=== PATIENT | female | born 1985 | race Caucasian/White ===

== ENCOUNTER 2017-01-24 23:49 | Inpatient (IN) | payer BC ==
[2017-01-25] MEDS ORDERED: Carboprost Tromethamine 250 MCG/1 ML Amp IM PRN (00:10)
[2017-01-25] MEDS ORDERED: Ondansetron 4 MG/2 ML SDV IV PRN ×2 (00:10→13:34)
[2017-01-25] MEDS ORDERED: Lactated Ringers 500 ML IV ONE (00:10)
[2017-01-25] MEDS ORDERED: Lidocaine 1% 30 ML SDV INJECT PRN (00:10)
[2017-01-25] MEDS ORDERED: Nalbuphine 10 MG/1 ML Vial IM PRN (00:10)
[2017-01-25] MEDS ORDERED: Acetaminophen 325 MG Tab PO PRN ×2 (00:10→00:17)
[2017-01-25] MEDS ORDERED: Methylergonovine 0.2 MG/1 ML Amp IM PRN (00:10)
[2017-01-25] MEDS ORDERED: Penicillin G Potassium 5 MILLUNITS in Sodium Chloride 0.9% 100 ML IV ONE (00:10)
[2017-01-25] MEDS ORDERED: fentaNYL 100 MCG/2 ML SDV IVPUSH PRN (00:10)
[2017-01-25] MEDS ORDERED: Misoprostol 400 MCG (4 X 100 MCG TAB) RECTAL PRN (00:10)
[2017-01-25] MEDS ORDERED: Sodium Chloride 0.9% 10 ML Syringe FLUSH PRN ×2 (00:10→00:17)
[2017-01-25] MEDS ORDERED: Misoprostol 25 MCG (1/4 of 100 MCG) Tab VAG PRN (00:17)
--- NOTE | 2017-01-25 00:26 | PCM.LDHP ---
L&D History of Present Illness - General Date of Service: 01/25/17 Admit Problem/Dx: Patient Status Order with Admit Dx/Problem 01/25/17 00:10 Patient Status [ADT] Routine Admission Diagnosis/Problem Admission Diagnosis/Problem Source of Information: Patient History Limitations: Reports: No Limitations - History of Present Illness Introduction:: 31-year-old presents for IOL at 41w1d for postdates . She has no complaints. She has good care. Baby has been active. No regular contractions. No vaginal bleeding or leaking of fluid. No new headaches or vision changes. Past Medical History - Past Surgical History HEENT Surgical History: Reports: Other (See Below) (Dental surgery) Social & Family History - Family History Cardiac: Reports: Hypertension (Mother), Other (See Below) (Heart attack-- Paternal grandfather) Other Family History: Breast cancer--Maternal grandmother Neurological: Reports: Dementia (Paternal grandmother) Endocrine/Metabolic: Reports: Diabetes, type II (Maternal grandfather; Paternal grandfather) H&P Review of Systems - Review of Systems: Review Of Systems: See Below General: Reports: No Symptoms HEENT: Reports: No Symptoms Pulmonary: Reports: No Symptoms Cardiovascular: Reports: No Symptoms Gastrointestinal: Reports: No Symptoms Genitourinary: Reports: Incontinence Musculoskeletal: Reports: No Symptoms L&D Exam - Exam Exam: See Below - OB Specific Contraction Intensity: Irritability Movement: Active Heart Tones: Present Heart Tones per Min: 135 Heart Rate (FHR) Variability: Moderate (6-25 bmp) Presentation: Vertex - Coto Score Coto Score Cervix Position: Midposition Coto Score Consistency: Soft Coto Score Effacement: 51-70% Coto Score Dilation: 1-2 cm Coto Score Infant's Station: -2 Coto Score Total: 7 - Exam General: Alert, Oriented HEENT: Conjunctiva Clear, Mucosa Moist & [place] Lungs: Clear to Auscultation, Normal Respiratory Effort Cardiovascular: Regular Rate, Regular Rhythm. No: Systolic Murmur, Diastolic Murmur Genitourinary: Normal external exam Extremities: Pedal Edema (1+ bilaterally) Skin: Warm, Dry, Intact Psychiatric: Alert, Normal Affect, Normal Mood - Problem List (1) care in third trimester SNOMED Code(s): 780975590, 39000482, 34683782, 667510801, 950037655 ICD Code: Z34.93 - ENCNTR FOR SUPRVSN OF NORMAL PREG, UNSP, THIRD TRIMESTER Status: Acute Current Visit: Yes (2) Post-dates SNOMED Code(s): 54874390 ICD Code: O48.0 - POST-TERM Status: Acute Current Visit: Yes (3) Anemia affecting in third trimester SNOMED Code(s): 93599193, 40686325 ICD Code: O99.013 - ANEMIA COMPLICATING , THIRD TRIMESTER Status: Acute Current Visit: Yes (4) GBS (group B Streptococcus carrier), +RV culture, currently SNOMED Code(s): 52028833, 718862631 ICD Code: O99.820 - STREPTOCOCCUS B CARRIER STATE COMPLICATING Status: Acute Current Visit: Yes Problem List Initiated/Reviewed/Updated: Yes Orders Last 24hrs: Active Orders 24 hr Category Date Time Status Patient Status [ADT] Routine ADT 01/25/17 00:10 Ordered Communication Order [RC] ASDIRECTED Care 01/25/17 00:10 Ordered Communication Order [RC] ASDIRECTED Care 01/25/17 00:17 Ordered Communication Order [RC] ASDIRECTED Care 01/25/17 00:17 Ordered Communication Order [RC] ASDIRECTED Care 01/25/17 00:17 Ordered Communication Order [RC] ASDIRECTED Care 01/25/17 00:17 Ordered Communication Order [RC] ASDIRECTED Care 01/25/17 00:17 Ordered Heart Tones [RC] PER UNIT ROUTINE Care 01/25/17 00:10 Ordered Monitoring [RC] PER UNIT ROUTINE Care 01/25/17 00:17 Ordered Notify Provider Vital Signs OB [RC] ASDIRECTED Care 01/25/17 00:10 Ordered Notify Provider [RC] PRN Care 01/25/17 00:10 Ordered Notify Provider [RC] PRN Care 01/25/17 00:17 Ordered Notify Provider [RC] PRN Care 01/25/17 00:17 Ordered Notify Provider [RC] STAT Care 01/25/17 00:17 Ordered Peripheral IV Care [RC] . DIRECTED Care 01/25/17 00:18 Ordered Pump Management, Intrathecal [RC] ASDIRECTED Care 01/25/17 00:10 Ordered Up ad Sandy [RC] ASDIRECTED Care 01/25/17 00:10 Ordered Vaginal Exam [RC] PRN Care 01/25/17 00:17 Ordered Vital Signs [RC] PER UNIT ROUTINE Care 01/25/17 00:10 Ordered Regular Diet [DIET] Diet 01/25/17 Breakfast Ordered CBC W/O DIFF,HEMOGRAM [HEME] Routine Lab 01/25/17 00:10 Ordered Acetaminophen [Tylenol] Med 01/25/17 00:10 Ordered 650 mg PO Q4H PRN Acetaminophen [Tylenol] Med 01/25/17 00:17 Ordered 650 mg PO Q4H PRN Carboprost Tromethamine [Hemabate DS] Med 01/25/17 00:10 Ordered 250 mcg IM ASDIRECTED PRN Lactated Ringers @ 125 MLS/HR(1000ml) Med 01/25/17 00:15 Ordered Lactated Ringers [Ringers, Lactated] 1,000 ml IV ASDIRECTED Lactated Ringers [Ringers, Lactated] 500 ml Med 01/25/17 00:10 Ordered IV .BOLUS Lidocaine 1% [Xylocaine-MPF 1%] Med 01/25/17 00:10 Ordered 10 ml INJECT ASDIRECTED PRN Methylergonovine [Methergine] Med 01/25/17 00:10 Ordered 0.2 mg IM ASDIRECTED PRN Misoprostol [Cytotec] Med 01/25/17 00:17 Ordered 25 mcg VAG Q4H PRN Misoprostol [Cytotec] Med 01/25/17 00:10 Ordered 800 mcg RECTAL ASDIRECTED PRN Nalbuphine [Nubain] Med 01/25/17 00:10 Ordered 10 mg IM Q3H PRN Ondansetron [Zofran] Med 01/25/17 00:10 Ordered 4 mg IV Q4H PRN Oxytocin 30 Units in NS @ 2 MUNITS/MIN(500ml) Med 01/25/17 00:30 Ordered Oxytocin/Normal Saline [Pitocin in NS 30 UNIT/500 ML] 30 unit in 500 ml IV TITRATE Penicillin G Potassium [Pfizerpen] 3 millunits Med 01/25/17 02:00 Ordered Sodium Chloride 0.9% [Normal Saline] 100 ml IV Q4HR Penicillin G Potassium [Pfizerpen] 5 millunits Med 01/25/17 00:10 Ordered Sodium Chloride 0.9% [Normal Saline] 100 ml IV ONETIME Sodium Chloride 0.9% [Saline Flush] Med 01/25/17 00:10 Ordered 10 ml FLUSH ASDIRECTED PRN Sodium Chloride 0.9% [Saline Flush] Med 01/25/17 00:17 Ordered 10 ml FLUSH ASDIRECTED PRN fentaNYL [Sublimaze] Med 01/25/17 00:10 Ordered 50 mcg IVPUSH Q1H PRN Peripheral IV Insertion Adult [OM.PC] Urgent Oth 01/25/17 00:17 Ordered Saline Lock Insert [OM.PC] Routine Oth 01/25/17 00:10 Ordered Resuscitation Status Routine Resus Stat 01/25/17 00:10 Ordered Medication Orders Acetaminophen (Tylenol) 650 mg PO Q4H PRN PRN Reason: Pain (Mild 1-3) and fever Acetaminophen (Tylenol) 650 mg PO Q4H PRN PRN Reason: Pain/Fever Carboprost Tromethamine (Hemabate Ds) 250 mcg IM ASDIRECTED PRN PRN Reason: HEMORRHAGE Fentanyl (Sublimaze) 50 mcg IVPUSH Q1H PRN PRN Reason: Pain (moderate 4-6) Lactated Ringer's (Ringers, Lactated) 500 mls @ 999 mls/hr IV .BOLUS ONE Stop: 01/25/17 00:40 Lactated Ringer's (Ringers, Lactated) 1,000 mls @ 125 mls/hr IV ASDIRECTED DHARMESH Penicillin G Potassium 5 (millunits/ Sodium Chloride) 100 mls @ 200 mls/hr IV ONETIME ONE Stop: 01/25/17 00:39 Penicillin G Potassium 3 (millunits/ Sodium Chloride) 100 mls @ 200 mls/hr IV Q4HR DHARMESH Oxytocin/Sodium Chloride (Pitocin In Ns 30 Unit/500 Ml) 30 unit in 500 mls @ 2 mls/hr IV TITRATE DHARMESH; 2 MUNITS/MIN PRN Reason: Protocol Lidocaine HCl (Xylocaine-Mpf 1%) 10 ml INJECT ASDIRECTED PRN PRN Reason: Perineal Repair Methylergonovine Maleate (Methergine) 0.2 mg IM ASDIRECTED PRN PRN Reason: Hemorrhage Misoprostol (Cytotec) 800 mcg RECTAL ASDIRECTED PRN PRN Reason: Hemorrhage Misoprostol (Cytotec) 25 mcg VAG Q4H PRN PRN Reason: cervical ripening Stop: 01/26/17 04:18 Nalbuphine HCl (Nubain) 10 mg IM Q3H PRN PRN Reason: Pain (moderate 4-6) Ondansetron HCl (Zofran) 4 mg IV Q4H PRN PRN Reason: Nausea/Vomiting Sodium Chloride (Saline Flush) 10 ml FLUSH ASDIRECTED PRN PRN Reason: Keep Vein Open Sodium Chloride (Saline Flush) 10 ml FLUSH ASDIRECTED PRN PRN Reason: Keep Vein Open Assessment/Plan Comment:: 31-year-old at 41w1d presents for IOL for postdates 1. Admit to L&D 2. Plan for Cytotec induction 3. Will use pitocin and AROM for augmentation of labor as needed 4. Will start PCN for GBS positive status when in active labor 5. Expectant management. Anticipate Lyly France MD
[2017-01-25] MEDS: Lactated Ringers 1,000 ML IV SCH ×7 (01:45→21:37)
--- NOTE | 2017-01-25 04:08 | PCM.SN ---
- Free Text/Narrative Note: 01/25/17 Called in by STAR Watts for a second prolonged deceleration after patient had gotten up to the bathroom. There was an initial 5 minute deceleration around 0145 that resolved with conservative measures. The second deceleration occurred around 0320. tracing is Category I or II while patient is in bed. I discussed the options of versus continuing with an attempt at labor but patient cannot get out of bed again. Discussed the risk of possible emergent section if heart tones were to again become low and stay low. Both the patient and her understand this risk and would like to attempt to proceed with vaginal delivery. Cervix was 2.5/75/-1 and was noted to be more anterior. Cytotec was placed 3 hours ago. In one hour, low dose pitocin will be started. Patient was also advised that if the baby does not tolerate pitocin, we would need to proceed with delivery. Plan was reviewed with patient, her and nursing simultaneously. Lyly France MD
[2017-01-25] MEDS: Oxytocin/Normal Saline 30 UNIT/500 ML BAG IV SCH ×2 (05:13→13:46)
[2017-01-25] MEDS: Penicillin G Potassium 3 MILLUNITS in Sodium Chloride 0.9% 100 ML IV SCH ×2 (07:58→11:02)
[2017-01-25] MEDS ORDERED: fentaNYL 100 MCG/2 ML SDV ONE ×3 (08:37→12:20)
[2017-01-25] MEDS ORDERED: ePHEDrine 50 MG/ML SDV ONE ×2 (10:31→12:20)
[2017-01-25] MEDS ORDERED: Phenylephrine 1% 10 MG/ML SDV ONE (10:43)
--- NOTE | 2017-01-25 10:50 | PCM.SN ---
- Free Text/Narrative Note: Called to provide labor pain relief for this patient via intrathecal. After discussing anesthesia plan with Dr. France, reviewed patient history, obtained consent, and verified NPO status, then proceeded. With patient in left lateral position, sterile prep/drape. Skin wheal at L3-4 with 1% lidocaine. LP X 1 at L-4, no heme, no paresthesia, positive, clear CSF, but flow inadequate and unable to aspirate, so repositioned needle (basically another LP X1) - no paresthesia, no heme, positive, clear, free flowing CSF. Then 6mg mpf, hyperbaric spinal 0.75% marcaine, 20mcg sufenta, 30mcg fentanyl, 0.4ml preservative free normal saline, plus epi wash given intrathecally. Patient remained in Left lateral for 5 minutes, then moved to Right lateral. Maternal B /P and FHT's dropped, so ephedrine given - initally 20mg, followed in a few minutes by another 30mg in 10mg increments around 2-3 minutes apart (the last 20mg directed by Dr. France). Pt's B/P and FHT's returned to acceptable levels. Patient reported pain relief with subsequent contractions. Difficult to determine block height - patient reports to be comfortable, but assessed block only to around T12.
[2017-01-25] MEDS ORDERED: Oxytocin/Normal Saline 60 UNIT/1,000 ML BAG ONE (12:13)
[2017-01-25] MEDS ORDERED: ceFAZolin 2 GM in Premix Bag 1 BAG IV ONE (12:18)
[2017-01-25] MEDS ORDERED: Citric Acid/Sodium Citrate Solution 30 ML Cup PO ONE (12:18)
[2017-01-25] MEDS ORDERED: Ondansetron 4 MG/2 ML SDV ONE (12:20)
[2017-01-25] MEDS ORDERED: Ketorolac 30 MG/ML SDV ONE (12:20)
[2017-01-25] MEDS ORDERED: Morphine PF 1 MG/ML Amp ONE (12:20)
[2017-01-25] MEDS ORDERED: Propofol 200 MG/20 ML SDV ONE (12:21)
[2017-01-25] MEDS ORDERED: Succinylcholine 200 MG/10 ML MDV ONE (12:21)
--- NOTE | 2017-01-25 12:24 | PCM.SN ---
- Free Text/Narrative Note: 01/25/17 For the past 3 hours, patient has had persistent recurrent decelerations in the 80s-90s. Baby has recovered with these. Patient did receive an intrathecal and became hypotensive but recovered from this. Labor has stalled at 9 cm. Patient's contractions spaced out after receiving the intrathecal. An attempt was made to restart pitocin but decelerations worsened. Due to intolerance of labor and failure to progress, we will proceed with primary section. Patient and her were advised of the risks of surgery , including but not limited to blood loss, infection and damage to surrounding structures. We will attempt spinal anesthesia but patient is aware that general anesthesia may be needed. Consents were signed and we will proceed to the OR MAND[facility]. Lyly France MD
[2017-01-25] MEDS ORDERED: diphenhydrAMINE 50 MG/ML SDV IVPUSH PRN (13:34)
[2017-01-25] MEDS ORDERED: Naloxone 2 MG/2 ML Syringe IVPUSH PRN (13:34)
[2017-01-25] MEDS ORDERED: ePHEDrine 50 MG/ML SDV IVPUSH PRN (13:34)
[2017-01-25] MEDS ORDERED: Oxytocin/Normal Saline 30 UNIT/500 ML BAG IV ONE (14:04)
[2017-01-25] MEDS ORDERED: Morphine PF 150 MG/30 ML PCA Syringe IV SCH (14:15)
[2017-01-25] MEDS ORDERED: fentaNYL 100 MCG/2 ML SDV ITHECAL ONE (15:33)
[2017-01-25] MEDS ORDERED: ePHEDrine 50 MG/ML SDV IV ONE (15:33)
[2017-01-25] MEDS ORDERED: Propofol 200 MG/20 ML SDV IV ONE (15:34)
[2017-01-25] MEDS ORDERED: Ondansetron 4 MG/2 ML SDV IV ONE (15:34)
[2017-01-25] MEDS ORDERED: Ketorolac 30 MG/ML SDV IVPUSH ONE (15:34)
[2017-01-25] MEDS ORDERED: Glycopyrrolate 0.2 MG/ML 2 ML SDV IV ONE (15:34)
[2017-01-25] MEDS ORDERED: Rocuronium 50 MG/5 ML Vial IV ONE (15:34)
[2017-01-25] MEDS ORDERED: Succinylcholine 200 MG/10 ML MDV IV ONE (15:34)
[2017-01-25] MEDS ORDERED: Neostigmine Methylsulfate 10 MG/10 ML MDV IV ONE (15:34)
[2017-01-25] MEDS ORDERED: fentaNYL 100 MCG/2 ML SDV IV ONE (15:34)
--- NOTE | 2017-01-25 17:00 | PCM.PRNOTE ---
- Free Text/Narrative Note: Section Operative Report Date of Surgery: 01/25/17 Surgeon: Lyly France MD Invoice Classification Clerk: MD Kaylen Live MD Pre-Operative Diagnosis: IOL at 41w1d for postdates intolerance of labor Post-Operative Diagnosis: IOL at 41w1d for postdates intolerance of labor Placental abruption Procedure Performed: Primary low transverse section Anesthesia: General EBL: 900 mL IVF: 900 mL in OR Drains: Agudelo catheter with 50 mL of urine output Specimens: None Complications: None apparent Findings: Normal uterus, tubes, and ovaries. Indication and Consent: During labor the heart tracing began to show signs of developing hypoxemia. Conservative measures of oxygen supplementation and position changes did not relieve these findings. The oxytocin was discontinued and uterine rest was further facilitated with a dose of intravenous terbutaline. Nevertheless, the heart tracing continued to show evidence of worsening hypoxemia. section was recommended to the patient for wellbeing. The patient understood that the risks of section include, but are not limited to, visceral or vascular injury, infection, blood loss and need for blood transfusion, prolonged hospitalization, and reoperation. The patient stated understanding and desired to proceed. All questions were answered. Procedure in Detail: The patient was taken to the operating room. Agudelo catheter and pneumoboots were placed on Labor and Delivery. She was then prepped and draped in routine fashion in dorsal supine position with a left villanueva tilt. Two grams of cefazolin (Ancef) were given for infection prophylaxis. Initially, spinal anesthesia was intended; however, heart rate was noted to be in the 80s. Therefore, general anesthesia was administered. A Pfannenstiel skin incision was made at 1245 with a scalpel and carried down to the fascia. The fascia was bluntly dissected. The rectus musculature was in the midline down to the level of the pubic symphysis. The peritoneal opening was then extended superiorly and inferiorly to the bladder reflection with good visualization of the bladder. The bladder blade was positioned to keep the bladder out of the operative field. The lower uterine segment was incised with a scalpel. The amniotic sac was ruptured with an Allis clamp and meconium stained fluid was noted. The uterine incision was extended bluntly with lateral and upward traction. The fetus was in vertex position. The head was elevated out of the maternal pelvis with special attention paid to avoid using the uterine incision as a fulcrum. Gentle fundal pressure was applied once the head was brought into the incision. The was delivered at 1246 with minimal difficulty. Bulb suctioning of the 's nose and mouth was performed on the operative field. The cord was clamped and cut in standard fashion, and the was handed over to the awaiting nursery staff. IV oxytocin was initiated to facilitate uterine contractions. Blood was collected for cord blood gases. The placenta was delivered intact with manual message of the uterine fundus along with gentle cord traction. Approximately 300 mL of old blood indicative of placental abruption was noted upon removal of the placenta. The uterus was then exteriorized. The inside of the uterus was gently wiped with a lap sponge to assure complete removal of remaining products of conception. The uterine incision was closed with 0 -Vicryl suture in a running locked fashion. A second imbricating layer of 0-Vicryl was also placed. The incision was inspected and hemostasis achieved. The ovaries and tubes were visualized and found to be normal. The uterus, tubes, and ovaries were returned to the abdominal cavity. The blood clots and fluid were wiped out of the abdomen and pelvis with moist laparotomy sponges. The uterine incision was re-inspected along with all other incised surfaces and good hemostasis was confirmed. The peritoneus was then closed using 2-0 Vicyrl. The fascia was then closed with 2-0 looped PDS suture with care not to include any underlying abdominal contents. The sub-cutaneous layer was reapproximated with plain suture. The skin was closed with 3-0 suture on a Lauro needle in a subcuticular fashion. Dressing was applied. Sponge and instrument counts were reported as correct times two. Patient tolerated procedure well and was taken to PACU in stable condition. Lyyl France MD
--- NOTE | 2017-01-25 17:04 | PCM.DEL ---
L & D Note - General Info Date of Service: 01/25/17 Mother's Due Date: 01/17/17 - Delivery Note Labor: Augmented by Oxytocin Cervical Ripening Method: Misoprostil Delivery Outcome: Livebirth Infant Delivery Method: Primary Presentation: Vertex Nuchal Cord: None Anesthesia Type: Spinal, General Amniotic Fluid Description: Meconium Stained (Initially clear but meconium stained in the OR) Episiotomy Type: None Laceration: None Placenta: Intact, Manual Removal, Clot (Old blood consistent with placental abruption) Cord: 3 Vessels Estimated Blood Loss: 900 Resuscitation Needed: Yes : Stimulated, Warmed, Warmer Used Provider: Lyly France Score 1 min: 5 Score 5 min: 8 Delivery Comments (Free Text/Narrative):: Please see procedure note for details Induction Criteria - Coto Score Coto Score Dilation: 1-2 cm Coto Score Effacement: 60-70% Coto Score 's Station: -2 Coto Score Consistency: Soft Coto Score Cervix Position: Midposition Coto Score Total: 7 Coto Score Presenting Part: Reports: Cephalic - Induction Gestational Age >/= 39 wks: Yes Medical Indication: Postdates Estimated Pelvis: Reports: Adequate Reassuring Monitoring Strip: Yes Absence of Tachy Systole: Yes - Augmentation Estimated Pelvis: Reports: Adequate Weight Estimated:: Reports: AGA Reassuring Monitoring Strip: Yes Absence of Tachy Systole: Yes - Patient Data Vitals - Most Recent: Last Vital Signs Temp 36.0 C 01/25/17 13:31 Pulse 76 01/25/17 14:15 Resp 26 H 01/25/17 14:15 BP 132/68 01/25/17 14:15 Pulse Ox 96 01/25/17 14:15 Weight - Most Recent: 92.986 kg I&O - Last 24 Hours: Intake & Output 01/25/17 01/25/17 01/25/17 06:59 14:59 22:59 Intake Total 5508 Output Total 575 Balance 4933 Lab Results Last 24 Hours: Laboratory Results - last 24 hr 01/25/17 01/25/17 Range/Units 00:36 00:36 WBC 12.8 H (5.0-10.0) 10^3/uL RBC 4.16 L (4.2-5.4) 10^6/uL Hgb 12.4 (12.0-16.0) g/dL Hct 37.7 (37.0-47.0) % MCV 90.6 (80-100) fL MCH 29.8 (27.0-34.0) pg MCHC 32.9 L (33.0-35.0) g/dL Plt Count 168 (150-450) 10^3/uL Blood Type O POSITIVE Gel Antibody Screen Negative Med Orders - Current: Current Medications Acetaminophen (Tylenol) 650 mg PO Q4H PRN PRN Reason: Pain (Mild 1-3) and fever Carboprost Tromethamine (Hemabate Ds) 250 mcg IM ASDIRECTED PRN PRN Reason: HEMORRHAGE Diphenhydramine HCl (Benadryl) 25 mg IVPUSH Q6H PRN PRN Reason: Itching or Nausea Docusate Sodium (Colace) 100 mg PO Q12H PRN PRN Reason: Constipation Ephedrine Sulfate (Ephedrine Sulfate) 5 mg IVPUSH SEECOMMENT PRN PRN Reason: Other Oxytocin/Sodium Chloride (Pitocin In Ns 30 Unit/500 Ml) 30 unit in 500 mls @ 2 mls/hr IV TITRATE DHARMESH; 2 MUNITS/MIN PRN Reason: Protocol Last Admin: 01/25/17 13:46 Dose: 1 munits/min, 125 mls/hr Lactated Ringer's (Ringers, Lactated) 1,000 mls @ 125 mls/hr IV ASDIRECTED DHARMESH Last Admin: 01/25/17 13:35 Dose: 125 mls/hr Ibuprofen (Motrin) 800 mg PO Q8H PRN PRN Reason: mild pain or fever Ketorolac Tromethamine (Toradol) 15 mg IVPUSH Q6H DHARMESH Stop: 01/26/17 08:01 Methylergonovine Maleate (Methergine) 0.2 mg IM ASDIRECTED PRN PRN Reason: Hemorrhage Misoprostol (Cytotec) 800 mcg RECTAL ASDIRECTED PRN PRN Reason: Hemorrhage Misoprostol (Cytotec) 25 mcg VAG Q4H PRN PRN Reason: cervical ripening Stop: 01/26/17 04:18 Last Admin: 01/25/17 00:55 Dose: 25 mcg Morphine Sulfate (Morphine Cane Stripper 150 Mg In 30 Ml) 0 mg IV ASDIRECTED DHARMESH PRN Reason: Protocol Last Admin: 01/25/17 14:50 Dose: 150 mg Naloxone HCl (Narcan) 0.1 mg IVPUSH SEECOMMENT PRN PRN Reason: Respiratory Depression Ondansetron HCl (Zofran) 4 mg IV Q4H PRN PRN Reason: Nausea/Vomiting Oxycodone/Acetaminophen (Percocet 325-5 Mg) 1 tab PO Q4H PRN PRN Reason: Pain (moderate 4-6) Oxycodone/Acetaminophen (Percocet 325-5 Mg) 2 tab PO Q4H PRN PRN Reason: Pain (moderate 4-6) Simethicone (Simethicone) 80 mg PO Q4H PRN PRN Reason: Gas Sodium Chloride (Saline Flush) 10 ml FLUSH ASDIRECTED PRN PRN Reason: Keep Vein Open Sodium Chloride (Saline Flush) 10 ml FLUSH ASDIRECTED PRN PRN Reason: Keep Vein Open Discontinued Medications Acetaminophen (Tylenol) 650 mg PO Q4H PRN PRN Reason: Pain/Fever Citric Acid/Sodium Citrate (Bicitra Solution) 30 ml PO ONETIME ONE Stop: 01/25/17 12:19 Last Admin: 01/25/17 12:18 Dose: 30 ml Ephedrine Sulfate (Ephedrine Sulfate) Confirm Administered Dose 50 mg .ROUTE .STK-MED ONE Stop: 01/25/17 10:32 Last Admin: 01/25/17 14:13 Dose: Not Given Ephedrine Sulfate (Ephedrine Sulfate) Confirm Administered Dose 50 mg .ROUTE .STK-MED ONE Stop: 01/25/17 12:21 Ephedrine Sulfate (Ephedrine Sulfate) 50 mg IV .STK-MED ONE Stop: 01/25/17 15:34 Fentanyl (Sublimaze) 50 mcg IVPUSH Q1H PRN PRN Reason: Pain (moderate 4-6) Last Admin: 01/25/17 06:41 Dose: 50 mcg Fentanyl (Sublimaze) Confirm Administered Dose 100 mcg .ROUTE .STK-MED ONE Stop: 01/25/17 08:38 Last Admin: 01/25/17 14:12 Dose: Not Given Fentanyl (Sublimaze) Confirm Administered Dose 100 mcg .ROUTE .STK-MED ONE Stop: 01/25/17 10:05 Last Admin: 01/25/17 14:13 Dose: Not Given Fentanyl (Sublimaze) Confirm Administered Dose 100 mcg .ROUTE .STK-MED ONE Stop: 01/25/17 12:21 Fentanyl (Sublimaze) 30 mcg ITHECAL .STK-MED ONE Stop: 01/25/17 15:34 Fentanyl (Sublimaze) 100 mcg IV .STK-MED ONE Stop: 01/25/17 15:35 Glycopyrrolate (Glycopyrrolate) 0.4 mg IV .STK-MED ONE Stop: 01/25/17 15:35 Lactated Ringer's (Ringers, Lactated) 500 mls @ 999 mls/hr IV .BOLUS ONE Stop: 01/25/17 00:40 Last Admin: 01/25/17 08:29 Dose: 999 mls/hr Lactated Ringer's (Ringers, Lactated) 1,000 mls @ 125 mls/hr IV ASDIRECTED DHARMESH Last Admin: 01/25/17 12:12 Dose: 125 mls/hr Penicillin G Potassium 5 (millunits/ Sodium Chloride) 100 mls @ 200 mls/hr IV ONETIME ONE Stop: 01/25/17 00:39 Last Admin: 01/25/17 06:02 Dose: 200 mls/hr Penicillin G Potassium 3 (millunits/ Sodium Chloride) 100 mls @ 200 mls/hr IV Q4HR [facility] Last Admin: 01/25/17 11:02 Dose: 200 mls/hr Oxytocin/Sodium Chloride (Pitocin In Ns 30 Unit/500 Ml) Confirm Administered Dose 60 unit in 1,000 mls @ as directed .ROUTE .STK-MED ONE Stop: 01/25/17 12:14 Cefazolin Sodium/Dextrose 2 gm (/ Premix) 50 mls @ 100 mls/hr IV ONETIME ONE Stop: 01/25/17 12:47 Last Admin: 01/25/17 12:40 Dose: 100 mls/hr Ketorolac Tromethamine (Toradol) Confirm Administered Dose 30 mg .ROUTE .STK- MED ONE Stop: 01/25/17 12:21 Ketorolac Tromethamine (Toradol) 30 mg IVPUSH .STK-MED ONE Stop: 01/25/17 15:35 Lidocaine HCl (Xylocaine-Mpf 1%) 10 ml INJECT ASDIRECTED PRN PRN Reason: Perineal Repair Morphine Sulfate (Duramorph Pf) Confirm Administered Dose 1 mg .ROUTE .STK-MED ONE Stop: 01/25/17 12:21 Nalbuphine HCl (Nubain) 10 mg IM Q3H PRN PRN Reason: Pain (moderate 4-6) Neostigmine Methylsulfate (Neostigmine Methylsulfate) 4 mg IV .STK-MED ONE Stop: 01/25/17 15:35 Ondansetron HCl (Zofran) 4 mg IV Q4H PRN PRN Reason: Nausea/Vomiting Last Admin: 01/25/17 08:22 Dose: 4 mg Ondansetron HCl (Zofran) Confirm Administered Dose 4 mg .ROUTE .STK-MED ONE Stop: 01/25/17 12:21 Ondansetron HCl (Zofran) 4 mg IV .STK-MED ONE Stop: 01/25/17 15:35 Phenylephrine HCl (Mando-Synephrine) Confirm Administered Dose 10 mg .ROUTE .STK- MED ONE Stop: 01/25/17 10:44 Last Admin: 01/25/17 14:13 Dose: Not Given Propofol (Diprivan 20 Ml) Confirm Administered Dose 200 mg .ROUTE .STK-MED ONE Stop: 01/25/17 12:22 Propofol (Diprivan 20 Ml) 200 mg IV .STK-MED ONE Stop: 01/25/17 15:35 Rocuronium [place] (Zemuron) 10 mg IV .STK-MED ONE Stop: 01/25/17 15:35 Succinylcholine Chloride (Quelicin) Confirm Administered Dose 200 mg .ROUTE .STK -MED ONE Stop: 01/25/17 12:22 Succinylcholine Chloride (Quelicin) 140 mg IV .STK-MED ONE Stop: 01/25/17 15:35 Sufentanil Citrate (Sufenta) Confirm Administered Dose 50 mcg .ROUTE .STK-MED ONE Stop: 01/25/17 08:39 Last Admin: 01/25/17 14:12 Dose: Not Given Sufentanil Citrate (Sufenta) Confirm Administered Dose 50 mcg .ROUTE .STK-MED ONE Stop: 01/25/17 10:05 Last Admin: 01/25/17 14:13 Dose: Not Given Sufentanil Citrate (Sufenta) 20 mcg ITHECAL .K-MED ONE Stop: 01/25/17 15:34 - Problem List & Annotations (1) care in third trimester SNOMED Code(s): 144439822, 49643244, 75325492, 963168602, 034341518 Code(s): Z34.93 - ENCNTR FOR SUPRVSN OF NORMAL PREG, UNSP, THIRD TRIMESTER Status: Acute Current Visit: Yes (2) Post-dates SNOMED Code(s): 44720705 Code(s): O48.0 - POST-TERM Status: Acute Current Visit: Yes (3) Anemia affecting in third trimester SNOMED Code(s): 00085117, 22023542 Code(s): O99.013 - ANEMIA COMPLICATING , THIRD TRIMESTER Status: Acute Current Visit: Yes (4) GBS (group B Streptococcus carrier), +RV culture, currently SNOMED Code(s): 88302609, 173128717 Code(s): O99.820 - STREPTOCOCCUS B CARRIER STATE COMPLICATING Status: Acute Current Visit: Yes (5) Placental abruption SNOMED Code(s): 817741998 Code(s): O45.90 - PREMATURE SEPARATION OF PLACENTA, UNSP, UNSP TRIMESTER Status: Acute Current Visit: Yes (6) Status post primary low transverse section SNOMED Code(s): 840700325, 300208524, 253305085, 321540346 Code(s): Z98.891 - HISTORY OF UTERINE SCAR FROM PREVIOUS SURGERY Status: Acute Current Visit: Yes - Problem List Review Problem List Initiated/Reviewed/Updated: Yes - My Orders Last 24 Hours: My Active Orders 01/25/17 00:10 Patient Status [ADT] Routine Heart Tones [RC] PER UNIT ROUTINE Notify Provider Vital Signs OB [RC] ASDIRECTED Vital Signs [RC] PER UNIT ROUTINE Acetaminophen [Tylenol] 650 mg PO Q4H PRN Carboprost Tromethamine [Hemabate DS] 250 mcg IM ASDIRECTED PRN Methylergonovine [Methergine] 0.2 mg IM ASDIRECTED PRN Misoprostol [Cytotec] 800 mcg RECTAL ASDIRECTED PRN Sodium Chloride 0.9% [Saline Flush] 10 ml FLUSH ASDIRECTED PRN Saline Lock Insert [OM.PC] Routine Resuscitation Status Routine 01/25/17 00:17 Vaginal Exam [RC] PRN Misoprostol [Cytotec] 25 mcg VAG Q4H PRN Sodium Chloride 0.9% [Saline Flush] 10 ml FLUSH ASDIRECTED PRN Peripheral IV Insertion Adult [OM.PC] Urgent 01/25/17 00:18 Peripheral IV Care [RC] . DIRECTED 01/25/17 00:30 Oxytocin/Normal Saline [Pitocin in NS 30 UNIT/500 ML] 30 unit in 500 ml IV TITRATE 01/25/17 12:19 RT Incentive Spirometry [RC] ASDIRECTED Schedule Procedure [COMM] Per Unit Routine 01/25/17 13:34 Intake and Output [RC] Q8H Notify Provider Intake and Out [RC] ASDIRECTED Consult to Supervisor Of Officials [CONS] Routine Acetaminophen/oxyCODONE [Percocet 325-5 MG] 1 tab PO Q4H PRN Acetaminophen/oxyCODONE [Percocet 325-5 MG] 2 tab PO Q4H PRN Docusate Sodium [Colace] 100 mg PO Q12H PRN Naloxone [Narcan] 0.1 mg IVPUSH SEECOMMENT PRN Ondansetron [Zofran] 4 mg IV Q4H PRN Simethicone 80 mg PO Q4H PRN diphenhydrAMINE [Benadryl] 25 mg IVPUSH Q6H PRN ePHEDrine [ePHEDrine Sulfate] 5 mg IVPUSH SEECOMMENT PRN 01/25/17 13:35 Antiembolic Devices [RC] 08,20 Bedrest [RC] 08,20 Communication Order [RC] PER UNIT ROUTINE Communication Order [RC] PER UNIT ROUTINE Communication Order [RC] Per Unit Routine Urinary Catheter Removal [RC] Per Unit Routine Vital Signs [RC] 00,04,08,12,16,20 Antiembolic Hose [OM.PC] Per Unit Routine Assess Lochia [WOMSER] Per Unit Routine Assess Uterine Involution [WOMSER] Per Unit Routine Breast Pump [WOMSER] Per Unit Routine Sequential Compression Device [OM.PC] Per Unit Routine 01/25/17 13:45 Lactated Ringers [Ringers, Lactated] 1,000 ml IV ASDIRECTED 01/25/17 20:00 CBC W/O DIFF,HEMOGRAM [HEME] Routine Ketorolac [Toradol] 15 mg IVPUSH Q6H 01/25/17 Breakfast Regular Diet [DIET] 01/26/17 16:00 Ibuprofen [Motrin] 800 mg PO Q8H PRN - Assessment Assessment:: 31-year-old now status post primary section for intolerance of labor - Plan Plan:: 1. Initiate routine postoperative orders 2. Pain control will be with LOSS PREVENTION ANALYST for the first 24 hours then will transition to oral pain medications 3. Will check hemoglobin at 2000 tonight due to placental abruption 4. Plans to breastfeed 5. Anticipate discharge 01/28/17 Lyly France MD
[2017-01-25] MEDS: Ketorolac 30 MG/ML SDV IVPUSH SCH (19:59)
[2017-01-26] MEDS: Ketorolac 30 MG/ML SDV IVPUSH SCH ×2 (01:42→08:40)
[2017-01-26] MEDS: Lactated Ringers 1,000 ML IV SCH (05:21)
[2017-01-26] MEDS: Acetaminophen/oxyCODONE 325-5 MG Tab PO PRN ×3 (08:42→19:28)
[2017-01-26] MEDS: Simethicone 80 MG Tab.Chew PO PRN ×2 (08:43→19:27)
[2017-01-26] MEDS: Docusate Sodium 100 MG Cap PO PRN ×2 (08:44→19:27)
--- NOTE | 2017-01-26 09:56 | PCM.PNPP ---
- General Info Date of Service: 01/26/17 Subjective Update: 31-year-old now postoperative day #1 status post primary section for intolerance of labor. Placental abruption was found in the operating room. Patient is doing well. She is tolerating a general diet. She is currently on a HOME HEALTH MANAGER for pain control. She is making adequate urine. She is passing gas. No dizziness or lightheadedness. Functional Status: Reports: Pain Controlled, Tolerating Diet - Review of Systems General: Reports: No Symptoms HEENT: Reports: No Symptoms Pulmonary: Reports: No Symptoms Cardiovascular: Reports: No Symptoms Gastrointestinal: Reports: No Symptoms Genitourinary: Reports: No Symptoms Musculoskeletal: Reports: No Symptoms Skin: Reports: No Symptoms Neurological: Reports: No Symptoms - General Info Date of Service: 01/26/17 - Patient Data Vital Signs - Most Recent: Last Vital Signs Temp 36.8 C 01/26/17 08:00 Pulse 114 H 01/26/17 08:00 Resp 16 01/26/17 08:00 BP 117/64 01/26/17 08:00 Pulse Ox 100 01/26/17 08:00 Weight - Most Recent: 92.986 kg I&O - Last 24 Hours: Intake & Output 01/25/17 01/26/17 01/26/17 22:59 06:59 14:59 Output Total 750 2400 Balance -750 -2400 Lab Results - Last 24 Hours: Laboratory Results - last 24 hr 01/25/17 01/25/17 Range/Units 00:36 20:05 WBC 18.7 H (5.0-10.0) 10^3/uL RBC 3.88 L (4.2-5.4) 10^6/uL Hgb 11.7 L (12.0-16.0) g/dL Hct 35.4 L (37.0-47.0) % MCV 91.2 (80-100) fL MCH 30.2 (27.0-34.0) pg MCHC 33.1 (33.0-35.0) g/dL Plt Count 130 L (150-450) 10^3/uL Blood Type O POSITIVE Gel Antibody Screen Negative Med Orders - Current: Current Medications Acetaminophen (Tylenol) 650 mg PO Q4H PRN PRN Reason: Pain (Mild 1-3) and fever Carboprost Tromethamine (Hemabate Ds) 250 mcg IM ASDIRECTED PRN PRN Reason: HEMORRHAGE Diphenhydramine HCl (Benadryl) 25 mg IVPUSH Q6H PRN PRN Reason: Itching or Nausea Docusate Sodium (Colace) 100 mg PO Q12H PRN PRN Reason: Constipation Last Admin: 01/26/17 08:44 Dose: 100 mg Ephedrine Sulfate (Ephedrine Sulfate) 5 mg IVPUSH SEECOMMENT PRN PRN Reason: Other Oxytocin/Sodium Chloride (Pitocin In Ns 30 Unit/500 Ml) 30 unit in 500 mls @ 2 mls/hr IV TITRATE DHARMESH; 2 MUNITS/MIN PRN Reason: Protocol Last Titration: 01/25/17 16:50 Dose: 0 mls/hr Lactated Ringer's (Ringers, Lactated) 1,000 mls @ 125 mls/hr IV ASDIRECTED DHARMESH Last Admin: 01/26/17 05:21 Dose: 125 mls/hr Ibuprofen (Motrin) 800 mg PO Q8H PRN PRN Reason: mild pain or fever Loratadine (Claritin) 10 mg PO DAILY PRN PRN Reason: Allergies Methylergonovine Maleate (Methergine) 0.2 mg IM ASDIRECTED PRN PRN Reason: Hemorrhage Misoprostol (Cytotec) 800 mcg RECTAL ASDIRECTED PRN PRN Reason: Hemorrhage Morphine Sulfate (Morphine Rn Telehealth 150 Mg In 30 Ml) 0 mg IV ASDIRECTED DHARMESH PRN Reason: Protocol Last Admin: 01/25/17 14:50 Dose: 150 mg Naloxone HCl (Narcan) 0.1 mg IVPUSH SEECOMMENT PRN PRN Reason: Respiratory Depression Ondansetron HCl (Zofran) 4 mg IV Q4H PRN PRN Reason: Nausea/Vomiting Oxycodone/Acetaminophen (Percocet 325-5 Mg) 1 tab PO Q4H PRN PRN Reason: Pain (moderate 4-6) Last Admin: 01/26/17 08:42 Dose: 1 tab Oxycodone/Acetaminophen (Percocet 325-5 Mg) 2 tab PO Q4H PRN PRN Reason: Pain (moderate 4-6) Simethicone (Simethicone) 80 mg PO Q4H PRN PRN Reason: Gas Last Admin: 01/26/17 08:43 Dose: 80 mg Sodium Chloride (Saline Flush) 10 ml FLUSH ASDIRECTED PRN PRN Reason: Keep Vein Open Sodium Chloride (Saline Flush) 10 ml FLUSH ASDIRECTED PRN PRN Reason: Keep Vein Open Discontinued Medications Acetaminophen (Tylenol) 650 mg PO Q4H PRN PRN Reason: Pain/Fever Citric Acid/Sodium Citrate (Bicitra Solution) 30 ml PO ONETIME ONE Stop: 01/25/17 12:19 Last Admin: 01/25/17 12:18 Dose: 30 ml Ephedrine Sulfate (Ephedrine Sulfate) Confirm Administered Dose 50 mg .ROUTE .STK-MED ONE Stop: 01/25/17 10:32 Last Admin: 01/25/17 14:13 Dose: Not Given Ephedrine Sulfate (Ephedrine Sulfate) Confirm Administered Dose 50 mg .ROUTE .STK-MED ONE Stop: 01/25/17 12:21 Ephedrine Sulfate (Ephedrine Sulfate) 50 mg IV .STK-MED ONE Stop: 01/25/17 15:34 Fentanyl (Sublimaze) 50 mcg IVPUSH Q1H PRN PRN Reason: Pain (moderate 4-6) Last Admin: 01/25/17 06:41 Dose: 50 mcg Fentanyl (Sublimaze) Confirm Administered Dose 100 mcg .ROUTE .STK-MED ONE Stop: 01/25/17 08:38 Last Admin: 01/25/17 14:12 Dose: Not Given Fentanyl (Sublimaze) Confirm Administered Dose 100 mcg .ROUTE .STK-MED ONE Stop: 01/25/17 10:05 Last Admin: 01/25/17 14:13 Dose: Not Given Fentanyl (Sublimaze) Confirm Administered Dose 100 mcg .ROUTE .STK-MED ONE Stop: 01/25/17 12:21 Fentanyl (Sublimaze) 30 mcg ITHECAL .STK-MED ONE Stop: 01/25/17 15:34 Fentanyl (Sublimaze) 100 mcg IV .STK-MED ONE Stop: 01/25/17 15:35 Glycopyrrolate (Glycopyrrolate) 0.4 mg IV .STK-MED ONE Stop: 01/25/17 15:35 Lactated Ringer's (Ringers, Lactated) 500 mls @ 999 mls/hr IV .BOLUS ONE Stop: 01/25/17 00:40 Last Admin: 01/25/17 08:29 Dose: 999 mls/hr Lactated Ringer's (Ringers, Lactated) 1,000 mls @ 125 mls/hr IV ASDIRECTED [facility] Last Admin: 01/25/17 12:12 Dose: 125 mls/hr Penicillin G Potassium 5 (millunits/ Sodium Chloride) 100 mls @ 200 mls/hr IV ONETIME ONE Stop: 01/25/17 00:39 Last Admin: 01/25/17 06:02 Dose: 200 mls/hr Penicillin G Potassium 3 (millunits/ Sodium Chloride) 100 mls @ 200 mls/hr IV Q4HR [facility] Last Admin: 01/25/17 11:02 Dose: 200 mls/hr Oxytocin/Sodium Chloride (Pitocin In Ns 30 Unit/500 Ml) Confirm Administered Dose 60 unit in 1,000 mls @ as directed .ROUTE .STK-MED ONE Stop: 01/25/17 12:14 Cefazolin Sodium/Dextrose 2 gm (/ Premix) 50 mls @ 100 mls/hr IV ONETIME ONE Stop: 01/25/17 12:47 Last Admin: 01/25/17 12:40 Dose: 100 mls/hr Ketorolac Tromethamine (Toradol) Confirm Administered Dose 30 mg .ROUTE .STK- MED ONE Stop: 01/25/17 12:21 Ketorolac Tromethamine (Toradol) 15 mg IVPUSH Q6H [facility] Stop: 01/26/17 08:01 Last Admin: 01/26/17 08:40 Dose: 15 mg Ketorolac Tromethamine (Toradol) 30 mg IVPUSH .STK-MED ONE Stop: 01/25/17 15:35 Lidocaine HCl (Xylocaine-Mpf 1%) 10 ml INJECT ASDIRECTED PRN PRN Reason: Perineal Repair Misoprostol (Cytotec) 25 mcg VAG Q4H PRN PRN Reason: cervical ripening Stop: 01/26/17 04:18 Last Admin: 01/25/17 00:55 Dose: 25 mcg Morphine Sulfate (Duramorph Pf) Confirm Administered Dose 1 mg .ROUTE .STK-MED ONE Stop: 01/25/17 12:21 Nalbuphine HCl (Nubain) 10 mg IM Q3H PRN PRN Reason: Pain (moderate 4-6) Neostigmine Methylsulfate (Neostigmine Methylsulfate) 4 mg IV .STK-MED ONE Stop: 01/25/17 15:35 Ondansetron HCl (Zofran) 4 mg IV Q4H PRN PRN Reason: Nausea/Vomiting Last Admin: 01/25/17 08:22 Dose: 4 mg Ondansetron HCl (Zofran) Confirm Administered Dose 4 mg .ROUTE .STK-MED ONE Stop: 01/25/17 12:21 Ondansetron HCl (Zofran) 4 mg IV .STK-MED ONE Stop: 01/25/17 15:35 Phenylephrine HCl (Mando-Synephrine) Confirm Administered Dose 10 mg .ROUTE .STK- MED ONE Stop: 01/25/17 10:44 Last Admin: 01/25/17 14:13 Dose: Not Given Propofol (Diprivan 20 Ml) Confirm Administered Dose 200 mg .ROUTE .STK-MED ONE Stop: 01/25/17 12:22 Propofol (Diprivan 20 Ml) 200 mg IV .STK-MED ONE Stop: 01/25/17 15:35 Rocuronium [place] (Zemuron) 10 mg IV .STK-MED ONE Stop: 01/25/17 15:35 Succinylcholine Chloride (Quelicin) Confirm Administered Dose 200 mg .ROUTE .STK -MED ONE Stop: 01/25/17 12:22 Succinylcholine Chloride (Quelicin) 140 mg IV .STK-MED ONE Stop: 01/25/17 15:35 Sufentanil Citrate (Sufenta) Confirm Administered Dose 50 mcg .ROUTE .STK-MED ONE Stop: 01/25/17 08:39 Last Admin: 01/25/17 14:12 Dose: Not Given Sufentanil Citrate (Sufenta) Confirm Administered Dose 50 mcg .ROUTE .STK-MED ONE Stop: 01/25/17 10:05 Last Admin: 01/25/17 14:13 Dose: Not Given Sufentanil Citrate (Sufenta) 20 mcg ITHECAL .STK-MED ONE Stop: 01/25/17 15:34 Sufentanil Citrate (Sufenta) Confirm Administered Dose 50 mcg .ROUTE .STK-MED ONE Stop: 01/26/17 05:45 Last Admin: 01/26/17 06:13 Dose: Not Given - Infant Interaction Infant Disposition, : in Room with Family Feeding: Breastfed Infant; Nursed Well Support Person: - Recovery Exam Fundal Tone: Firm Fundal Level: 1 Fingerbreadths Below Umbilicus Fundal Placement: Midline Lochia Amount: Small Lochia Color: Rubra/Red Perineum Description: Intact, Minimal Bruising/Swelling Episiotomy/Laceration: None Bladder Status: Nonpalpable, Indwelling Catheter in Place Urinary Elimination: Indwelling Catheter - Exam General: Alert, Oriented Lungs: Clear to Auscultation, Normal Respiratory Effort Cardiovascular: Regular Rate, Regular Rhythm, No Murmurs GI/Abdominal Exam: Soft, Non-Tender Extremities: Pedal Edema (1+ bilaterally) Skin: Warm, Dry, Intact Wound/Incisions: Dressing Dry and Intact Psy/Mental Status: Alert, Normal Affect, Normal Mood - Problem List & Annotations (1) care in third trimester SNOMED Code(s): 285435049, 39450333, 87059262, 528867691, 014512630 Code(s): Z34.93 - ENCNTR FOR SUPRVSN OF NORMAL PREG, UNSP, THIRD TRIMESTER Status: Acute Current Visit: Yes (2) Post-dates SNOMED Code(s): 08170121 Code(s): O48.0 - POST-TERM Status: Acute Current Visit: Yes (3) Anemia affecting in third trimester SNOMED Code(s): 05534697, 90482944 Code(s): O99.013 - ANEMIA COMPLICATING , THIRD TRIMESTER Status: Acute Current Visit: Yes (4) GBS (group B Streptococcus carrier), +RV culture, currently SNOMED Code(s): 62184055, 351018669 Code(s): O99.820 - STREPTOCOCCUS B CARRIER STATE COMPLICATING Status: Acute Current Visit: Yes (5) Placental abruption SNOMED Code(s): 591347611 Code(s): O45.90 - PREMATURE SEPARATION OF PLACENTA, UNSP, UNSP TRIMESTER Status: Acute Current Visit: Yes (6) Status post primary low transverse section SNOMED Code(s): 084952559, 878716285, 972886221, 030957067 Code(s): Z98.891 - HISTORY OF UTERINE SCAR FROM PREVIOUS SURGERY Status: Acute Current Visit: Yes - Problem List Review Problem List Initiated/Reviewed/Updated: Yes - My Orders Last 24 Hours: My Active Orders 01/25/17 12:19 RT Incentive Spirometry [RC] ASDIRECTED Schedule Procedure [COMM] Per Unit Routine 01/25/17 13:34 Intake and Output [RC] Q8H Notify Provider Intake and Out [RC] ASDIRECTED Consult to Linotype Machinist [CONS] Routine Acetaminophen/oxyCODONE [Percocet 325-5 MG] 1 tab PO Q4H PRN Acetaminophen/oxyCODONE [Percocet 325-5 MG] 2 tab PO Q4H PRN Docusate Sodium [Colace] 100 mg PO Q12H PRN Naloxone [Narcan] 0.1 mg IVPUSH SEECOMMENT PRN Ondansetron [Zofran] 4 mg IV Q4H PRN Simethicone 80 mg PO Q4H PRN diphenhydrAMINE [Benadryl] 25 mg IVPUSH Q6H PRN ePHEDrine [ePHEDrine Sulfate] 5 mg IVPUSH SEECOMMENT PRN 01/25/17 13:35 Bedrest [RC] 08,20 Communication Order [RC] PER UNIT ROUTINE Communication Order [RC] PER UNIT ROUTINE Communication Order [RC] Per Unit Routine Vital Signs [RC] 00,04,08,12,16,20 Antiembolic Hose [OM.PC] Per Unit Routine Assess Lochia [WOMSER] Per Unit Routine Assess Uterine Involution [WOMSER] Per Unit Routine Breast Pump [WOMSER] Per Unit Routine Sequential Compression Device [OM.PC] Per Unit Routine 01/25/17 13:45 Lactated Ringers [Ringers, Lactated] 1,000 ml IV ASDIRECTED 01/26/17 09:51 Loratadine [Claritin] 10 mg PO DAILY PRN 01/26/17 12:00 CBC W/O DIFF,HEMOGRAM [HEME] Routine 01/26/17 16:00 Ibuprofen [Motrin] 800 mg PO Q8H PRN - Assessment Assessment:: 31-year-old now postoperative day #1 status post primary section for intolerance of labor - Plan Plan:: 1. Continue routine postoperative cares 2. 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 Hemoglobin was appropriate last night. Will repeat at noon today. 4. Plans to breastfeed 5. Anticipate discharge 01/28/17. Dr. Andre will assume care of patient over the weekend. Lyly France MD
[2017-01-26] MEDS: Loratadine 10 MG Tab PO PRN (11:08)
--- NOTE | 2017-01-26 15:37 | PCM.POSTAN ---
POST ANESTHESIA ASSESSMENT - MENTAL STATUS Mental Status: Alert - VITAL SIGNS Pulse Rate: 98 SaO2: 100 Resp Rate: 18 Blood Pressure: 114/62 Temperature: 36.6 C - RESPIRATORY Respiratory Status: Respiratory Rate WNL - CARDIOVASCULAR CV Status: Pulse Rate WNL - GASTROINTESTINAL GI Status: No Symptoms - POST OP HYDRATION Hydration Status: Adequate & Stable - OBSERVATIONS Free Text/Narrative:: Patient without C/O. No C/O PDPH, no PONV, no c/o pain, no persistent paresthesias. No post anesthesia complications noted.
[2017-01-26] MEDS: Ibuprofen 800 MG Tab PO PRN (17:16)
[2017-01-27] MEDS: Acetaminophen/oxyCODONE 325-5 MG Tab PO PRN ×6 (00:17→22:14)
[2017-01-27] MEDS: Ibuprofen 800 MG Tab PO PRN ×3 (01:07→18:09)
[2017-01-27] MEDS: Docusate Sodium 100 MG Cap PO PRN ×2 (08:52→22:14)
[2017-01-27] MEDS: Loratadine 10 MG Tab PO PRN (08:57)
[2017-01-27] MEDS: Simethicone 80 MG Tab.Chew PO PRN ×4 (08:57→22:14)
--- NOTE | 2017-01-27 09:31 | PCM.PNPP ---
- General Info Date of Service: 01/27/17 (PPD/POD # 2 S/P section) Functional Status: Reports: Pain Controlled, Tolerating Diet, Ambulating, Urinating - Review of Systems General: Reports: No Symptoms HEENT: Reports: No Symptoms Pulmonary: Reports: No Symptoms Cardiovascular: Reports: No Symptoms Gastrointestinal: Reports: No Symptoms Genitourinary: Reports: No Symptoms Musculoskeletal: Reports: No Symptoms Skin: Reports: No Symptoms Neurological: Reports: No Symptoms Psychiatric: Reports: No Symptoms - General Info Date of Service: 01/27/17 (PPD/POD # 2 section) - Patient Data Vital Signs - Most Recent: Last Vital Signs Temp 97.2 F 01/27/17 04:00 Pulse 97 01/27/17 00:00 Resp 18 01/27/17 04:00 BP 133/82 01/27/17 00:00 Pulse Ox 99 01/27/17 00:00 Weight - Most Recent: 205 lb Lab Results - Last 24 Hours: Laboratory Results - last 24 hr 01/26/17 Range/Units 12:15 WBC 13.8 H (5.0-10.0) 10^3/uL RBC 3.43 L (4.2-5.4) 10^6/uL Hgb 10.4 L (12.0-16.0) g/dL Hct 31.9 L (37.0-47.0) % MCV 93.0 (80-100) fL MCH 30.3 (27.0-34.0) pg MCHC 32.6 L (33.0-35.0) g/dL Plt Count 139 L (150-450) 10^3/uL Med Orders - Current: Current Medications Acetaminophen (Tylenol) 650 mg PO Q4H PRN PRN Reason: Pain (Mild 1-3) and fever Carboprost Tromethamine (Hemabate Ds) 250 mcg IM ASDIRECTED PRN PRN Reason: HEMORRHAGE Diphenhydramine HCl (Benadryl) 25 mg IVPUSH Q6H PRN PRN Reason: Itching or Nausea Docusate Sodium (Colace) 100 mg PO Q12H PRN PRN Reason: Constipation Last Admin: 01/27/17 08:52 Dose: 100 mg Ephedrine Sulfate (Ephedrine Sulfate) 5 mg IVPUSH SEECOMMENT PRN PRN Reason: Other Oxytocin/Sodium Chloride (Pitocin In Ns 30 Unit/500 Ml) 30 unit in 500 mls @ 2 mls/hr IV TITRATE DHARMESH; 2 MUNITS/MIN PRN Reason: Protocol Last Titration: 01/25/17 16:50 Dose: 0 mls/hr Lactated Ringer's (Ringers, Lactated) 1,000 mls @ 125 mls/hr IV ASDIRECTED DHARMESH Last Admin: 01/26/17 05:21 Dose: 125 mls/hr Ibuprofen (Motrin) 800 mg PO Q8H PRN PRN Reason: mild pain or fever Last Admin: 01/27/17 08:55 Dose: 800 mg Loratadine (Claritin) 10 mg PO DAILY PRN PRN Reason: Allergies Last Admin: 01/27/17 08:57 Dose: 10 mg Methylergonovine Maleate (Methergine) 0.2 mg IM ASDIRECTED PRN PRN Reason: Hemorrhage Misoprostol (Cytotec) 800 mcg RECTAL ASDIRECTED PRN PRN Reason: Hemorrhage Morphine Sulfate (Morphine Tooth Cutter Pinion 150 Mg In 30 Ml) 0 mg IV ASDIRECTED DHARMESH PRN Reason: Protocol Last Admin: 01/25/17 14:50 Dose: 150 mg Naloxone HCl (Narcan) 0.1 mg IVPUSH SEECOMMENT PRN PRN Reason: Respiratory Depression Ondansetron HCl (Zofran) 4 mg IV Q4H PRN PRN Reason: Nausea/Vomiting Oxycodone/Acetaminophen (Percocet 325-5 Mg) 1 tab PO Q4H PRN PRN Reason: Pain (moderate 4-6) Last Admin: 01/27/17 04:01 Dose: 1 tab Oxycodone/Acetaminophen (Percocet 325-5 Mg) 2 tab PO Q4H PRN PRN Reason: Pain (moderate 4-6) Last Admin: 01/27/17 08:52 Dose: 2 tab Simethicone (Simethicone) 80 mg PO Q4H PRN PRN Reason: Gas Last Admin: 01/27/17 08:57 Dose: 80 mg Sodium Chloride (Saline Flush) 10 ml FLUSH ASDIRECTED PRN PRN Reason: Keep Vein Open Sodium Chloride (Saline Flush) 10 ml FLUSH ASDIRECTED PRN PRN Reason: Keep Vein Open Discontinued Medications Acetaminophen (Tylenol) 650 mg PO Q4H PRN PRN Reason: Pain/Fever Citric Acid/Sodium Citrate (Bicitra Solution) 30 ml PO ONETIME ONE Stop: 01/25/17 12:19 Last Admin: 01/25/17 12:18 Dose: 30 ml Ephedrine Sulfate (Ephedrine Sulfate) Confirm Administered Dose 50 mg .ROUTE .STK-MED ONE Stop: 01/25/17 10:32 Last Admin: 01/25/17 14:13 Dose: Not Given Ephedrine Sulfate (Ephedrine Sulfate) Confirm Administered Dose 50 mg .ROUTE .STK-MED ONE Stop: 01/25/17 12:21 Ephedrine Sulfate (Ephedrine Sulfate) 50 mg IV .STK-MED ONE Stop: 01/25/17 15:34 Fentanyl (Sublimaze) 50 mcg IVPUSH Q1H PRN PRN Reason: Pain (moderate 4-6) Last Admin: 01/25/17 06:41 Dose: 50 mcg Fentanyl (Sublimaze) Confirm Administered Dose 100 mcg .ROUTE .STK-MED ONE Stop: 01/25/17 08:38 Last Admin: 01/25/17 14:12 Dose: Not Given Fentanyl (Sublimaze) Confirm Administered Dose 100 mcg .ROUTE .STK-MED ONE Stop: 01/25/17 10:05 Last Admin: 01/25/17 14:13 Dose: Not Given Fentanyl (Sublimaze) Confirm Administered Dose 100 mcg .ROUTE .STK-MED ONE Stop: 01/25/17 12:21 Fentanyl (Sublimaze) 30 mcg ITHECAL .STK-MED ONE Stop: 01/25/17 15:34 Fentanyl (Sublimaze) 100 mcg IV .STK-MED ONE Stop: 01/25/17 15:35 Glycopyrrolate (Glycopyrrolate) 0.4 mg IV .STK-MED ONE Stop: 01/25/17 15:35 Lactated Ringer's (Ringers, Lactated) 500 mls @ 999 mls/hr IV .BOLUS ONE Stop: 01/25/17 00:40 Last Admin: 01/25/17 08:29 Dose: 999 mls/hr Lactated Ringer's (Ringers, Lactated) 1,000 mls @ 125 mls/hr IV ASDIRECTED DHARMESH Last Admin: 01/25/17 12:12 Dose: 125 mls/hr Penicillin G Potassium 5 (millunits/ Sodium Chloride) 100 mls @ 200 mls/hr IV ONETIME ONE Stop: 01/25/17 00:39 Last Admin: 01/25/17 06:02 Dose: 200 mls/hr Penicillin G Potassium 3 (millunits/ Sodium Chloride) 100 mls @ 200 mls/hr IV Q4HR [facility] Last Admin: 01/25/17 11:02 Dose: 200 mls/hr Oxytocin/Sodium Chloride (Pitocin In Ns 30 Unit/500 Ml) Confirm Administered Dose 60 unit in 1,000 mls @ as directed .ROUTE .STK-MED ONE Stop: 01/25/17 12:14 Cefazolin Sodium/Dextrose 2 gm (/ Premix) 50 mls @ 100 mls/hr IV ONETIME ONE Stop: 01/25/17 12:47 Last Admin: 01/25/17 12:40 Dose: 100 mls/hr Ketorolac Tromethamine (Toradol) Confirm Administered Dose 30 mg .ROUTE .STK- MED ONE Stop: 01/25/17 12:21 Ketorolac Tromethamine (Toradol) 15 mg IVPUSH Q6H [facility] Stop: 01/26/17 08:01 Last Admin: 01/26/17 08:40 Dose: 15 mg Ketorolac Tromethamine (Toradol) 30 mg IVPUSH .STK-MED ONE Stop: 01/25/17 15:35 Lidocaine HCl (Xylocaine-Mpf 1%) 10 ml INJECT ASDIRECTED PRN PRN Reason: Perineal Repair Misoprostol (Cytotec) 25 mcg VAG Q4H PRN PRN Reason: cervical ripening Stop: 01/26/17 04:18 Last Admin: 01/25/17 00:55 Dose: 25 mcg Morphine Sulfate (Duramorph Pf) Confirm Administered Dose 1 mg .ROUTE .STK-MED ONE Stop: 01/25/17 12:21 Nalbuphine HCl (Nubain) 10 mg IM Q3H PRN PRN Reason: Pain (moderate 4-6) Neostigmine Methylsulfate (Neostigmine Methylsulfate) 4 mg IV .STK-MED ONE Stop: 01/25/17 15:35 Ondansetron HCl (Zofran) 4 mg IV Q4H PRN PRN Reason: Nausea/Vomiting Last Admin: 01/25/17 08:22 Dose: 4 mg Ondansetron HCl (Zofran) Confirm Administered Dose 4 mg .ROUTE .STK-MED ONE Stop: 01/25/17 12:21 Ondansetron HCl (Zofran) 4 mg IV .STK-MED ONE Stop: 01/25/17 15:35 Phenylephrine HCl (Mando-Synephrine) Confirm Administered Dose 10 mg .ROUTE .STK- MED ONE Stop: 01/25/17 10:44 Last Admin: 01/25/17 14:13 Dose: Not Given Propofol (Diprivan 20 Ml) Confirm Administered Dose 200 mg .ROUTE .STK-MED ONE Stop: 01/25/17 12:22 Propofol (Diprivan 20 Ml) 200 mg IV .STK-MED ONE Stop: 01/25/17 15:35 Rocuronium [place] (Zemuron) 10 mg IV .STK-MED ONE Stop: 01/25/17 15:35 Succinylcholine Chloride (Quelicin) Confirm Administered Dose 200 mg .ROUTE .STK -MED ONE Stop: 01/25/17 12:22 Succinylcholine Chloride (Quelicin) 140 mg IV .STK-MED ONE Stop: 01/25/17 15:35 Sufentanil Citrate (Sufenta) Confirm Administered Dose 50 mcg .ROUTE .STK-MED ONE Stop: 01/25/17 08:39 Last Admin: 01/25/17 14:12 Dose: Not Given Sufentanil Citrate (Sufenta) Confirm Administered Dose 50 mcg .ROUTE .STK-MED ONE Stop: 01/25/17 10:05 Last Admin: 01/25/17 14:13 Dose: Not Given Sufentanil Citrate (Sufenta) 20 mcg ITHECAL .STK-MED ONE Stop: 01/25/17 15:34 Sufentanil Citrate (Sufenta) Confirm Administered Dose 50 mcg .ROUTE .STK-MED ONE Stop: 01/26/17 05:45 Last Admin: 01/26/17 06:13 Dose: Not Given - Interaction Infant Disposition, : in Room with Family Feeding: Breastfed ; Nursed Well Support Person: - Recovery Exam Fundal Tone: Firm Fundal Level: 1 Fingerbreadths Below Umbilicus Fundal Placement: Midline Lochia Amount: Small Lochia Color: Rubra/Red Perineum Description: Intact, Minimal Bruising/Swelling Episiotomy/Laceration: None Bladder Status: Voiding Urinary Elimination: Voided - Exam General: Alert, Oriented, Cooperative, No Acute Distress HEENT: Pupils Equal, Pupils Reactive Neck: Supple Lungs: Clear to Auscultation, Normal Respiratory Effort Cardiovascular: Regular Rate, Regular Rhythm, No Murmurs GI/Abdominal Exam: Normal Bowel Sounds, Soft, Non-Tender, No Organomegaly, No Distention Extremities: Normal Inspection, Normal Range of Motion, Pedal Edema Skin: Warm, Dry, Intact Wound/Incisions: Healing Well, No Drainage Neurological: No New Focal Deficit Psy/Mental Status: Alert, Normal Affect, Normal Mood - Problem List Review Problem List Initiated/Reviewed/Updated: Yes - Assessment Assessment:: POD/PPD # 2 S/P Primary section doing well - Plan Plan:: 1. Continue routine postoperative care 2. Anticipate discharge tomorrow 3. All questions answered.
[2017-01-28] MEDS: Simethicone 80 MG Tab.Chew PO PRN ×3 (03:20→12:54)
[2017-01-28] MEDS: Ibuprofen 800 MG Tab PO PRN ×2 (03:20→12:54)
[2017-01-28] MEDS: Acetaminophen/oxyCODONE 325-5 MG Tab PO PRN ×3 (03:21→12:55)
[2017-01-28] MEDS: Docusate Sodium 100 MG Cap PO PRN (07:55)
[2017-01-28] MEDS: Loratadine 10 MG Tab PO PRN (07:56)
--- NOTE | 2017-01-28 09:43 | PCM.PNPP ---
- General Info Date of Service: 01/28/17 (POD/PPD # 3 S/P LTC/S) Functional Status: Reports: Pain Controlled, Tolerating Diet, Ambulating, Urinating - Review of Systems General: Reports: No Symptoms HEENT: Reports: No Symptoms Pulmonary: Reports: No Symptoms Cardiovascular: Reports: No Symptoms Gastrointestinal: Reports: No Symptoms Genitourinary: Reports: No Symptoms Musculoskeletal: Reports: No Symptoms Skin: Reports: No Symptoms Neurological: Reports: No Symptoms Psychiatric: Reports: No Symptoms - General Info Date of Service: 01/28/17 - Patient Data Vital Signs - Most Recent: Last Vital Signs Temp 97.4 F 01/28/17 04:00 Pulse 92 01/28/17 04:00 Resp 16 01/28/17 04:00 BP 124/72 01/28/17 04:00 Pulse Ox 98 01/28/17 04:00 Weight - Most Recent: 205 lb Med Orders - Current: Current Medications Acetaminophen (Tylenol) 650 mg PO Q4H PRN PRN Reason: Pain (Mild 1-3) and fever Carboprost Tromethamine (Hemabate Ds) 250 mcg IM ASDIRECTED PRN PRN Reason: HEMORRHAGE Diphenhydramine HCl (Benadryl) 25 mg IVPUSH Q6H PRN PRN Reason: Itching or Nausea Docusate Sodium (Colace) 100 mg PO Q12H PRN PRN Reason: Constipation Last Admin: 01/28/17 07:55 Dose: 100 mg Ephedrine Sulfate (Ephedrine Sulfate) 5 mg IVPUSH SEECOMMENT PRN PRN Reason: Other Oxytocin/Sodium Chloride (Pitocin In Ns 30 Unit/500 Ml) 30 unit in 500 mls @ 2 mls/hr IV TITRATE DHARMESH; 2 MUNITS/MIN PRN Reason: Protocol Last Titration: 01/25/17 16:50 Dose: 0 mls/hr Lactated Ringer's (Ringers, Lactated) 1,000 mls @ 125 mls/hr IV ASDIRECTED DHARMESH Last Admin: 01/26/17 05:21 Dose: 125 mls/hr Ibuprofen (Motrin) 800 mg PO Q8H PRN PRN Reason: mild pain or fever Last Admin: 01/28/17 03:20 Dose: 800 mg Loratadine (Claritin) 10 mg PO DAILY PRN PRN Reason: Allergies Last Admin: 01/28/17 07:56 Dose: 10 mg Methylergonovine Maleate (Methergine) 0.2 mg IM ASDIRECTED PRN PRN Reason: Hemorrhage Misoprostol (Cytotec) 800 mcg RECTAL ASDIRECTED PRN PRN Reason: Hemorrhage Morphine Sulfate (Morphine Queen Producer 150 Mg In 30 Ml) 0 mg IV ASDIRECTED DHARMESH PRN Reason: Protocol Last Admin: 01/25/17 14:50 Dose: 150 mg Naloxone HCl (Narcan) 0.1 mg IVPUSH SEECOMMENT PRN PRN Reason: Respiratory Depression Ondansetron HCl (Zofran) 4 mg IV Q4H PRN PRN Reason: Nausea/Vomiting Oxycodone/Acetaminophen (Percocet 325-5 Mg) 1 tab PO Q4H PRN PRN Reason: Pain (moderate 4-6) Last Admin: 01/28/17 07:55 Dose: 1 tab Oxycodone/Acetaminophen (Percocet 325-5 Mg) 2 tab PO Q4H PRN PRN Reason: Pain (moderate 4-6) Last Admin: 01/28/17 03:21 Dose: 2 tab Simethicone (Simethicone) 80 mg PO Q4H PRN PRN Reason: Gas Last Admin: 01/28/17 07:55 Dose: 80 mg Sodium Chloride (Saline Flush) 10 ml FLUSH ASDIRECTED PRN PRN Reason: Keep Vein Open Sodium Chloride (Saline Flush) 10 ml FLUSH ASDIRECTED PRN PRN Reason: Keep Vein Open Discontinued Medications Acetaminophen (Tylenol) 650 mg PO Q4H PRN PRN Reason: Pain/Fever Citric Acid/Sodium Citrate (Bicitra Solution) 30 ml PO ONETIME ONE Stop: 01/25/17 12:19 Last Admin: 01/25/17 12:18 Dose: 30 ml Ephedrine Sulfate (Ephedrine Sulfate) Confirm Administered Dose 50 mg .ROUTE .STK-MED ONE Stop: 01/25/17 10:32 Last Admin: 01/25/17 14:13 Dose: Not Given Ephedrine Sulfate (Ephedrine Sulfate) Confirm Administered Dose 50 mg .ROUTE .STK-MED ONE Stop: 01/25/17 12:21 Ephedrine Sulfate (Ephedrine Sulfate) 50 mg IV .STK-MED ONE Stop: 01/25/17 15:34 Fentanyl (Sublimaze) 50 mcg IVPUSH Q1H PRN PRN Reason: Pain (moderate 4-6) Last Admin: 01/25/17 06:41 Dose: 50 mcg Fentanyl (Sublimaze) Confirm Administered Dose 100 mcg .ROUTE .STK-MED ONE Stop: 01/25/17 08:38 Last Admin: 01/25/17 14:12 Dose: Not Given Fentanyl (Sublimaze) Confirm Administered Dose 100 mcg .ROUTE .STK-MED ONE Stop: 01/25/17 10:05 Last Admin: 01/25/17 14:13 Dose: Not Given Fentanyl (Sublimaze) Confirm Administered Dose 100 mcg .ROUTE .STK-MED ONE Stop: 01/25/17 12:21 Fentanyl (Sublimaze) 30 mcg ITHECAL .STK-MED ONE Stop: 01/25/17 15:34 Fentanyl (Sublimaze) 100 mcg IV .STK-MED ONE Stop: 01/25/17 15:35 Glycopyrrolate (Glycopyrrolate) 0.4 mg IV .STK-MED ONE Stop: 01/25/17 15:35 Lactated Ringer's (Ringers, Lactated) 500 mls @ 999 mls/hr IV .BOLUS ONE Stop: 01/25/17 00:40 Last Admin: 01/25/17 08:29 Dose: 999 mls/hr Lactated Ringer's (Ringers, Lactated) 1,000 mls @ 125 mls/hr IV ASDIRECTED [facility] Last Admin: 01/25/17 12:12 Dose: 125 mls/hr Penicillin G Potassium 5 (millunits/ Sodium Chloride) 100 mls @ 200 mls/hr IV ONETIME ONE Stop: 01/25/17 00:39 Last Admin: 01/25/17 06:02 Dose: 200 mls/hr Penicillin G Potassium 3 (millunits/ Sodium Chloride) 100 mls @ 200 mls/hr IV Q4HR [facility] Last Admin: 01/25/17 11:02 Dose: 200 mls/hr Oxytocin/Sodium Chloride (Pitocin In Ns 30 Unit/500 Ml) Confirm Administered Dose 60 unit in 1,000 mls @ as directed .ROUTE .STK-MED ONE Stop: 01/25/17 12:14 Cefazolin Sodium/Dextrose 2 gm (/ Premix) 50 mls @ 100 mls/hr IV ONETIME ONE Stop: 01/25/17 12:47 Last Admin: 01/25/17 12:40 Dose: 100 mls/hr Ketorolac Tromethamine (Toradol) Confirm Administered Dose 30 mg .ROUTE .STK- MED ONE Stop: 01/25/17 12:21 Ketorolac Tromethamine (Toradol) 15 mg IVPUSH Q6H DHARMESH Stop: 01/26/17 08:01 Last Admin: 01/26/17 08:40 Dose: 15 mg Ketorolac Tromethamine (Toradol) 30 mg IVPUSH .STK-MED ONE Stop: 01/25/17 15:35 Lidocaine HCl (Xylocaine-Mpf 1%) 10 ml INJECT ASDIRECTED PRN PRN Reason: Perineal Repair Misoprostol (Cytotec) 25 mcg VAG Q4H PRN PRN Reason: cervical ripening Stop: 01/26/17 04:18 Last Admin: 01/25/17 00:55 Dose: 25 mcg Morphine Sulfate (Duramorph Pf) Confirm Administered Dose 1 mg .ROUTE .STK-MED ONE Stop: 01/25/17 12:21 Nalbuphine HCl (Nubain) 10 mg IM Q3H PRN PRN Reason: Pain (moderate 4-6) Neostigmine Methylsulfate (Neostigmine Methylsulfate) 4 mg IV .STK-MED ONE Stop: 01/25/17 15:35 Ondansetron HCl (Zofran) 4 mg IV Q4H PRN PRN Reason: Nausea/Vomiting Last Admin: 01/25/17 08:22 Dose: 4 mg Ondansetron HCl (Zofran) Confirm Administered Dose 4 mg .ROUTE .STK-MED ONE Stop: 01/25/17 12:21 Ondansetron HCl (Zofran) 4 mg IV .STK-MED ONE Stop: 01/25/17 15:35 Phenylephrine HCl (Mando-Synephrine) Confirm Administered Dose 10 mg .ROUTE .STK- MED ONE Stop: 01/25/17 10:44 Last Admin: 01/25/17 14:13 Dose: Not Given Propofol (Diprivan 20 Ml) Confirm Administered Dose 200 mg .ROUTE .STK-MED ONE Stop: 01/25/17 12:22 Propofol (Diprivan 20 Ml) 200 mg IV .STK-MED ONE Stop: 01/25/17 15:35 Rocuronium [place] (Zemuron) 10 mg IV .STK-MED ONE Stop: 01/25/17 15:35 Succinylcholine Chloride (Quelicin) Confirm Administered Dose 200 mg .ROUTE .STK -MED ONE Stop: 01/25/17 12:22 Succinylcholine Chloride (Quelicin) 140 mg IV .STK-MED ONE Stop: 01/25/17 15:35 Sufentanil Citrate (Sufenta) Confirm Administered Dose 50 mcg .ROUTE .STK-MED ONE Stop: 01/25/17 08:39 Last Admin: 01/25/17 14:12 Dose: Not Given Sufentanil Citrate (Sufenta) Confirm Administered Dose 50 mcg .ROUTE .STK-MED ONE Stop: 01/25/17 10:05 Last Admin: 01/25/17 14:13 Dose: Not Given Sufentanil Citrate (Sufenta) 20 mcg ITHECAL .STK-MED ONE Stop: 01/25/17 15:34 Sufentanil Citrate (Sufenta) Confirm Administered Dose 50 mcg .ROUTE .STK-MED ONE Stop: 01/26/17 05:45 Last Admin: 01/26/17 06:13 Dose: Not Given - Interaction Infant Disposition, : in Room with Family Infant Feeding: Breastfed Infant; Nursed Well Support Person: - Recovery Exam Fundal Tone: Firm Fundal Level: 1 Fingerbreadths Below Umbilicus Fundal Placement: Midline Lochia Amount: Small Lochia Color: Rubra/Red Perineum Description: Intact, Minimal Bruising/Swelling Episiotomy/Laceration: None Bladder Status: Voiding Urinary Elimination: Voided - Exam General: Alert, Oriented, Cooperative, No Acute Distress HEENT: Pupils Equal, Pupils Reactive Neck: Supple Lungs: Clear to Auscultation, Normal Respiratory Effort Cardiovascular: Regular Rate, Regular Rhythm, No Murmurs GI/Abdominal Exam: Normal Bowel Sounds, Soft, Non-Tender, No Distention Extremities: Normal Inspection, Pedal Edema Skin: Warm, Intact Wound/Incisions: Healing Well, No Drainage Neurological: No New Focal Deficit Psy/Mental Status: Alert, Normal Affect, Normal Mood - Problem List Review Problem List Initiated/Reviewed/Updated: Yes - My Orders Last 24 Hours: My Active Orders 01/28/17 08:59 Ready for Discharge [RC] PER UNIT ROUTINE - Assessment Assessment:: POD/PPD # 3 S/P Primary section doing well - Plan Plan:: 1. Discharge to home 2. All questions answered.
[2017-01-28 13:50] VITALS: BP 140/78
--- NOTE | 2017-01-29 09:16 | DISCH ---
INDICATION FOR ADMISSION: Ms. Woods is a 31-year-old, 1, para 0 female, who is admitted at 41 and 1/7 weeks gestation for induction of labor at [facility] in [place]. She was group B strep positive, so she was given penicillin G IV. Throughout her labor, she was having decelerations noted, and once she got to 9 cm dilated. There was definitely repetitive late decelerations, so with intolerance to labor diagnosed, a primary low transverse section was called. She tolerated the primary section quite well with delivery of a viable female infant, weighing 7 pounds, 8 ounces; 19-1/2 inches long; with scores of 5 at 1 minute, 8 at 5 minutes. There was meconium-stained fluid at the time of delivery along with placental abruption diagnosed. After delivery, the patient recovered and then went to the OB floor. The infant went to nursery. No complications occurred throughout her hospital stay. She was afebrile. Vital signs are stable. She tolerated her diet well, and ambulated quite well. No complications occurred. She was discharged to home on postop day #3. LABORATORY AND DIAGNOSTIC STUDIES: On 01/25/2017; WBC 12.8, hemoglobin 12.4, hematocrit 37.7, and platelet count 168,000. On 01/26/2017; WBC 13.8, hemoglobin 10.4, hematocrit 31.9, platelet count 139,000. DISCHARGE INSTRUCTIONS: 1. Discharge to home. 2. Follow up with Dr. France next week for incision check, and evaluate the . 3. Ibuprofen 800 mg one tab every 6-8 hours p.r.n. for pain. 4. Percocet 5 mg/325 mg one tablet every 6-8 hours p.r.n. for pain, dispense #40, no refills. 5. Discharge instructions including activity, followup, medications, diet, and wound care were discussed with the patient. She understood these and is willing to comply with these. 6. No douching, tampons, intercourse for 6 weeks. DISCHARGE DIAGNOSES: 1. 41 and 1/7 week intrauterine . 2. Cytotec cervical ripening. 3. Group B strep. Vaginal culture positive. 4. intolerance to labor. 5. Placental abruption. 6. Meconium-stained fluid. 7. Primary low transverse section via Pfannenstiel skin incision with delivery of a viable female , weighing 7 pounds, 8 ounces; 19-1/2 inches long; with scores of 5 at 1 minute, 8 at 5 minutes. 8. Spinal anesthesia with Duramorph. 9. Acute anemia secondary to blood loss. [facility] /[id number]
== END 2017-01-28 14:05 | disposition home or self-care (01) | DRG 540 ==
LOC: DL.OBCHECK 23:49 → DL.OB 01-25 00:01 → OBSVTOIN 01-25 12:46
PROVIDERS: ADMIT Family Medicine; ATTEND Family Medicine
PROC: 10D00Z1 Extraction of Products of Conception, Low, Open Approach (ICD-10-PCS; principal; 2017-01-25)
PROC: 3E0P7GC Introduction of Other Therapeutic Substance into Female Reproductive, Via Natural or Artificial Opening (ICD-10-PCS; 2017-01-25)
PROC: 00HU33Z Insertion of Infusion Device into Spinal Canal, Percutaneous Approach (ICD-10-PCS; 2017-01-25)
PROC: 3E0R3CZ (ICD-10-PCS; 2017-01-25)
DX: O48.0 Post-term pregnancy (principal); O99.824 Streptococcus B carrier state complicating childbirth; O99.02 Anemia complicating childbirth; O62.0 Primary inadequate contractions; O76 Abnormality in fetal heart rate and rhythm complicating labor and delivery; O45.93 Premature separation of placenta, unspecified, third trimester; O77.0 Labor and delivery complicated by meconium in amniotic fluid; Z3A.41 41 weeks gestation of pregnancy; Z37.0 Single live birth
CPT/HCPCS: 36415; 85027; 86850; 86900; 86901; A9270-GY; J0330; J0690; J1885; J2274; J2405; J2540; J2590; J2704; J2710; J3010; J3490; J7050; J7120

== ENCOUNTER 2018-11-27 10:01 | Inpatient (IN) | payer BC ==
[~2018-11-27 10:01] MED LIST: Lactated Ringers 1,000 ML IV SCH; Oxytocin/Normal Saline 30 UNIT/500 ML BAG IV SCH; Sodium Chloride 0.9% 10 ML Syringe FLUSH PRN; Tranexamic Acid 1,000 MG in Sodium Chloride 0.9% 100 ML IV PRN
[2018-11-27] MEDS ORDERED: ceFAZolin 2 GM in Premix Bag 1 BAG IV ONE (11:00)
[2018-11-27] MEDS ORDERED: Citric Acid/Sodium Citrate Solution 30 ML Cup PO ONE (11:15)
[2018-11-27] MEDS: Lactated Ringers 1,000 ML IV SCH ×2 (11:33→21:51)
[2018-11-27] MEDS ORDERED: Methylergonovine 0.2 MG/1 ML Amp IM PRN (14:27)
[2018-11-27] MEDS ORDERED: ePHEDrine 50 MG/ML SDV IVPUSH PRN (14:27)
[2018-11-27] MEDS ORDERED: Misoprostol 400 MCG (4 X 100 MCG TAB) RECTAL PRN (14:27)
[2018-11-27] MEDS ORDERED: Tranexamic Acid 1,000 MG in Sodium Chloride 0.9% 100 ML IV PRN (14:27)
[2018-11-27] MEDS ORDERED: Acetaminophen 325 MG Tab PO PRN (14:27)
[2018-11-27] MEDS ORDERED: Ondansetron 4 MG/2 ML SDV IV PRN (14:27)
[2018-11-27] MEDS ORDERED: diphenhydrAMINE 50 MG/ML SDV IVPUSH PRN (14:27)
[2018-11-27] MEDS ORDERED: Carboprost Tromethamine 250 MCG/1 ML Amp IM ONE (14:27)
[2018-11-27] MEDS ORDERED: Naloxone 2 MG/2 ML Syringe IVPUSH PRN (14:27)
[2018-11-27] MEDS ORDERED: Lactated Ringers 1,000 ML IV SCH (14:30)
[2018-11-27] MEDS ORDERED: Famotidine 20 MG/2 ML SDV IVPUSH ONE (14:41)
[2018-11-27] MEDS ORDERED: Promethazine 25 MG/ML SDV IM ONE (14:41)
--- NOTE | 2018-11-27 14:51 | PCM.HPR ---
H & P Addendum review - H & P Addendum Review Date of Original H & P: 11/21/18 Date Reviewed: 11/27/18 Time Reviewed: 11:15 Patient was Examined: No Changes
--- NOTE | 2018-11-27 15:00 | PCM.PRNOTE ---
- Free Text/Narrative Note: Section Operative Report Date of Surgery: 11/27/2018 Surgeon: Lyly France MD Msw: MD Dede Live, MS3 Miguel Cee, MS3 Pre-Operative Diagnosis: at 39w0d History section, declined Post-Operative Diagnosis: Same Procedure Performed: Repeat low transverse section Anesthesia: Spinal EBL: 1300 mL IVF: 1800 mL Drains: Agudelo catheter with 225 mL of urine output Specimens: None Complications: None apparent Findings: Normal uterus, tubes, and ovaries. Indication and Consent: The patient presented to floor today for scheduled at term due to hx of prior and desire for elective repeat . The patient understood that the risks of section include, but are not limited to, visceral or vascular injury, infection, blood loss and need for blood transfusion, prolonged hospitalization, and reoperation. The patient again stated understanding and desired to proceed. All questions were answered. Procedure in Detail: The patient was taken to the operating room where spinal anesthesia was placed and found to be adequate. 2 grams of cefazolin (Ancef) were given for infection prophylaxis. She was then prepped and draped in routine fashion in dorsal supine position with a left villanueva tilt. Agudelo catheter and pneumoboots were placed. A Pfannenstiel skin incision was made with a scalpel. The incision was carried down to the fascia sharply. The fascia was incised and extended laterally. The inferior aspect of the fascia was grasped with Colt clamps; the underlying rectus muscle and pyramidalis was dissected off with sharp and blunt technique. In a similar fashion, the superior aspect of the fascia was elevated with Colt clamps and the rectus muscle was dissected off. Hemostasis was achieved with the Bovie. The rectus musculature was in the midline down to the level of the pubic symphysis. Pre-peritoneal fatty tissue was bluntly dissected to expose the peritoneum. The peritoneum was found to be free of adherent bowel or bladder tissue and entered bluntly. The peritoneal opening was then extended superiorly and inferiorly to the bladder reflection with good visualization of the bladder. The Miguel retractor was inserted. Intraabdominal survey revealed scant, clear peritoneal fluid and thinned-out lower uterine segment. The vesicouterine peritoneum was opened with a pickup and mets, and the bladder flap was developed. The lower uterine segment was incised with a scalpel. The amniotic sac was ruptured with an Allis clamp and clear fluid was noted. The uterine incision was extended bluntly with lateral and upward traction. The fetus was in cephalic position. The head was elevated out of the maternal pelvis with special attention paid to avoid using the uterine incision as a fulcrum. Gentle fundal pressure was applied once the head was brought into the incision. The infant was delivered with difficulty. A bandage scissor was used to extend the uterine incision, the Miguel retractor was removed to facilitate delivery, and a Kiwi vacuum was applied. After about 3 minutes, baby 's head delivered. About 30 sections later, the entire body delivered. Bulb suctioning of the 's nose and mouth was performed on the operative field. Cord blood was collected.The cord was clamped and cut in standard fashion, and the was handed over to the awaiting nursery staff. IV oxytocin was initiated to facilitate uterine contractions. The placenta was delivered intact with manual message of the uterine fundus along with gentle cord traction. The uterus was then exteriorized. The inside of the uterus was gently wiped with a lap sponge to assure complete removal of remaining products of conception. The uterine incision was closed with 0 - Vicryl suture in a running locked fashion. A second imbricating layer of 0- Monocryl was also placed. The incision was inspected and hemostasis was achieved. The ovaries and tubes were visualized and found to be normal. The uterus, tubes, and ovaries were returned to the abdominal cavity. The blood clots and fluid were wiped out of the abdomen and pelvis with moist laparotomy sponges. The uterine incision was re-inspected along with all other incised surfaces and good hemostasis was confirmed. The peritoneal layer was reapproximated with the remnant 0-Vicryl suture. The fascia was then closed with 2-0 looped PDS suture with care not to include any underlying abdominal contents. The sub-cutaneous layer was reapproximated. The skin was closed with 4-0 Monocryl suture on a Lauro needle in a subcuticular fashion. Sponge and instrument counts were reported as correct times two. Pt tolerated procedure well and was taken to PACU in stable condition. Lyly France MD
--- NOTE | 2018-11-27 15:03 | PCM.DEL ---
L & D Note - General Info Date of Service: 11/27/18 Mother's Due Date: 12/04/18 - Delivery Note Delivery Outcome: Livebirth Infant Delivery Method: Scheduled Delivery Mode: Vacuum Extraction Presentation: Vertex Nuchal Cord: None Anesthesia Type: Spinal Amniotic Fluid Description: Clear Placenta: Intact Cord: 3 Vessels Estimated Blood Loss: 1,300 Resuscitation Needed: Yes [place]: Suctioned, Bulb Syringe, Stimulated, Warmed, [place] Used, Warmer Used Score 1 min: 6 Score 5 min: 8 Delivery Comments (Free Text/Narrative):: Please see procedure note for details - General Info Date of Service: 11/27/18 - Patient Data Vitals - Most Recent: Last Vital Signs Temp 35.4 C 11/27/18 13:30 Pulse 96 11/27/18 13:45 Resp 24 H 11/27/18 13:45 BP 136/58 L 11/27/18 13:45 Pulse Ox 98 11/27/18 13:45 Weight - Most Recent: 93.44 kg I&O - Last 24 Hours: Intake & Output 11/27/18 11/27/18 11/27/18 06:59 14:59 22:59 Intake Total 50 Output Total 200 Balance -150 Lab Results Last 24 Hours: Laboratory Results - last 24 hr 11/27/18 11/27/18 Range/Units 10:28 10:28 WBC 10.3 H (5.0-10.0) 10^3/uL RBC 4.24 (4.2-5.4) 10^6/uL Hgb 12.5 D (12.0-16.0) g/dL Hct 38.0 (37.0-47.0) % MCV 89.6 D (80-100) fL MCH 29.5 (27.0-34.0) pg MCHC 32.9 L (33.0-35.0) g/dL Plt Count 158 (150-450) 10^3/uL Neut % (Auto) 68.7 (42.2-75.2) % Lymph % (Auto) 19.1 L (20.5-50.1) % [place] % (Auto) 10.9 H (2-8) % Eos % (Auto) 1.1 (1.0-3.0) % Baso % (Auto) 0.2 (0.0-1.0) % Blood Type O POSITIVE Gel Antibody Screen Negative Med Orders - Current: Current Medications Acetaminophen (Tylenol) 650 mg PO Q6H PRN PRN Reason: mild pain or fever Diphenhydramine HCl (Benadryl) 25 mg IVPUSH Q6H PRN PRN Reason: Itching or Nausea Docusate Sodium (Colace) 100 mg PO Q12H PRN PRN Reason: Constipation Ephedrine Sulfate (Ephedrine Sulfate) 5 mg IVPUSH SEECOMMENT PRN PRN Reason: Other Tranexamic Acid 1,000 mg/ (Sodium Chloride) 110 mls @ 660 mls/hr IV ONETIME PRN PRN Reason: Bleeding Oxytocin/Sodium Chloride (Pitocin In Ns 30 Unit/500 Ml) 30 unit in 500 mls @ 2 mls/hr IV TITRATE [facility]; Protocol Last Admin: 11/27/18 13:16 Dose: 2 munits/min, 125 mls/hr Lactated Ringer's (Ringers, Lactated) 1,000 mls @ 125 mls/hr IV ASDIRECTED [facility] Last Admin: 11/27/18 11:33 Dose: 125 mls/hr Lactated Ringer's (Ringers, Lactated) 1,000 mls @ 500 mls/hr IV .BOLUS [facility] Last Admin: 11/27/18 11:00 Dose: 500 mls/hr Lactated Ringer's (Ringers, Lactated) 1,000 mls @ 125 mls/hr IV ASDIRECTED [facility] Tranexamic Acid 1,000 mg/ (Sodium Chloride) 110 mls @ 660 mls/hr IV ONETIME PRN PRN Reason: Bleeding Ibuprofen (Motrin) 800 mg PO Q8H PRN PRN Reason: mild pain or fever Ketorolac Tromethamine (Toradol) 15 mg IVPUSH Q6H [facility] Stop: 11/28/18 07:01 Methylergonovine Maleate (Methergine) 0.2 mg IM ONETIME PRN PRN Reason: Excessive Vaginal Bleeding Misoprostol (Cytotec) 800 mcg RECTAL ASDIRECTED PRN PRN Reason: Excessive bleeding Naloxone HCl (Narcan) 0.1 mg IVPUSH SEECOMMENT PRN PRN Reason: Respiratory Depression Ondansetron HCl (Zofran) 4 mg IV Q4H PRN PRN Reason: Nausea/Vomiting Oxycodone/Acetaminophen (Percocet 325-5 Mg) 1 tab PO Q4H PRN PRN Reason: Pain (moderate 4-6) Oxycodone/Acetaminophen (Percocet 325-5 Mg) 2 tab PO Q4H PRN PRN Reason: Pain (moderate 4-6) Prenat Multivit/Curriculum Assistant/Iron/Folic Ac ( Plus Iron) 1 each PO DAILY [facility] Simethicone (Simethicone) 160 mg PO QID [facility] Sodium Chloride (Saline Flush) 10 ml FLUSH ASDIRECTED PRN PRN Reason: Keep Vein Open Discontinued Medications Carboprost Tromethamine (Hemabate Ds) 250 mcg IM ONETIME ONE Stop: 11/27/18 14:28 Citric Acid/Sodium Citrate (Bicitra Solution) 30 ml PO ONETIME ONE Stop: 11/27/18 11:16 Last Admin: 11/27/18 11:32 Dose: 30 ml Famotidine (Pepcid) 20 mg IVPUSH ONETIME ONE Stop: 11/27/18 14:42 Cefazolin Sodium/Dextrose 2 gm (/ Premix) 50 mls @ 100 mls/hr IV ONETIME ONE Stop: 11/27/18 11:29 Last Admin: 11/27/18 11:45 Dose: 100 mls/hr Promethazine HCl (Phenergan) 12.5 mg IM ONETIME ONE Stop: 11/27/18 14:42 - Problem List & Annotations (1) History of delivery SNOMED Code(s): 820539238 Code(s): Z98.891 - HISTORY OF UTERINE SCAR FROM PREVIOUS SURGERY Status: Acute Current Visit: Yes (2) Anemia affecting in third trimester SNOMED Code(s): 83990875, 41254809 Code(s): O99.013 - ANEMIA COMPLICATING , THIRD TRIMESTER Status: Acute Current Visit: No (3) GBS (group B Streptococcus carrier), +RV culture, currently SNOMED Code(s): 5330008567666, 554409785, 7627346234470 Code(s): O99.820 - STREPTOCOCCUS B CARRIER STATE COMPLICATING Status: Acute Current Visit: No (4) care in third trimester SNOMED Code(s): 352550528, 07231993, 44903359, 710776295, 674375404 Code(s): Z34.93 - ENCNTR FOR SUPRVSN OF NORMAL PREG, UNSP, THIRD TRIMESTER Status: Acute Current Visit: No (5) Status post primary low transverse section SNOMED Code(s): 014930187, 48903725, 957155384, 350979870, 381499926 Code(s): Z98.891 - HISTORY OF UTERINE SCAR FROM PREVIOUS SURGERY Status: Acute Current Visit: No - Problem List Review Problem List Initiated/Reviewed/Updated: Yes - My Orders Last 24 Hours: My Active Orders 11/27/18 21:00 CBC W/O DIFF,HEMOGRAM [HEME] Routine - Assessment Assessment:: 32-year-old, now , status post repeat section at 39w0d - Plan Plan:: 1. Initiate routine postoperative cares 2. Plans to breastfeed 3. Due to blood loss >1000 mL, will obtain hemoglobin at 2100 tonight. 4. Anticipate discharge 11/30/18 or 12/01/18. Patient would like 48 hour discharge if possible. Lyly France MD
[2018-11-27] MEDS ORDERED: Oxytocin/Normal Saline 30 UNIT/500 ML BAG IV ONE (15:50)
[2018-11-27] MEDS: Ketorolac 30 MG/ML SDV IVPUSH SCH (18:49)
[2018-11-27] MEDS: Simethicone 80 MG Tab.Chew PO SCH ×2 (18:50→21:08)
[2018-11-27] MEDS: Docusate Sodium 100 MG Cap PO PRN (21:08)
[2018-11-28] MEDS: Ketorolac 30 MG/ML SDV IVPUSH SCH ×2 (01:11→06:46)
--- NOTE | 2018-11-28 08:42 | PCM.PNPP ---
- General Info Date of Service: 11/28/18 Subjective Update: 32-year-old now POD#1 s/p repeat section. Patient is doing well. She did have some nausea yesterday but that has resolved today. She is tolerating a general diet. No fever or chills. She has not yet been out of bed. Pain is well controlled. fairly well. Agudelo is in place. Functional Status: Reports: Pain Controlled, Tolerating Diet - Review of Systems General: Reports: No Symptoms HEENT: Reports: Sinus Congestion Pulmonary: Reports: No Symptoms Cardiovascular: Reports: No Symptoms Gastrointestinal: Reports: No Symptoms Genitourinary: Reports: No Symptoms Musculoskeletal: Reports: No Symptoms - General Info Date of Service: 11/28/18 - Patient Data Vital Signs - Most Recent: Last Vital Signs Temp 36.8 C 11/27/18 23:42 Pulse 107 H 11/27/18 23:42 Resp 16 11/27/18 23:42 BP 116/54 L 11/27/18 23:42 Pulse Ox 97 11/27/18 23:42 Weight - Most Recent: 93.44 kg I&O - Last 24 Hours: Intake & Output 11/27/18 11/28/18 11/28/18 22:59 06:59 14:59 Intake Total 2000 Output Total 400 1250 Balance -400 750 Lab Results - Last 24 Hours: Laboratory Results - last 24 hr 11/27/18 11/27/18 11/27/18 Range/Units 10:28 10:28 21:55 WBC 10.3 H 18.9 H (5.0-10.0) 10^3/uL RBC 4.24 3.98 L (4.2-5.4) 10^6/uL Hgb 12.5 D 12.0 (12.0-16.0) g/dL Hct 38.0 35.9 L (37.0-47.0) % MCV 89.6 D 90.2 (80-100) fL MCH 29.5 30.2 (27.0-34.0) pg MCHC 32.9 L 33.4 (33.0-35.0) g/dL Plt Count 158 165 (150-450) 10^3/uL Neut % (Auto) 68.7 (42.2-75.2) % Lymph % (Auto) 19.1 L (20.5-50.1) % [place] % (Auto) 10.9 H (2-8) % Eos % (Auto) 1.1 (1.0-3.0) % Baso % (Auto) 0.2 (0.0-1.0) % Blood Type O POSITIVE Gel Antibody Screen Negative 11/28/18 Range/Units 06:26 WBC 15.9 H (5.0-10.0) 10^3/uL RBC 3.52 L (4.2-5.4) 10^6/uL Hgb 10.6 L (12.0-16.0) g/dL Hct 31.7 L (37.0-47.0) % MCV 90.1 (80-100) fL MCH 30.1 (27.0-34.0) pg MCHC 33.4 (33.0-35.0) g/dL Plt Count 150 (150-450) 10^3/uL Neut % (Auto) (42.2-75.2) % Lymph % (Auto) (20.5-50.1) % [place] % (Auto) (2-8) % Eos % (Auto) (1.0-3.0) % Baso % (Auto) (0.0-1.0) % Blood Type Gel Antibody Screen Med Orders - Current: Current Medications Acetaminophen (Tylenol) 650 mg PO Q6H PRN PRN Reason: mild pain or fever Diphenhydramine HCl (Benadryl) 25 mg IVPUSH Q6H PRN PRN Reason: Itching or Nausea Last Admin: 11/27/18 16:48 Dose: 25 mg Docusate Sodium (Colace) 100 mg PO Q12H PRN PRN Reason: Constipation Last Admin: 11/27/18 21:08 Dose: 100 mg Ephedrine Sulfate (Ephedrine Sulfate) 5 mg IVPUSH SEECOMMENT PRN PRN Reason: Other Tranexamic Acid 1,000 mg/ (Sodium Chloride) 110 mls @ 660 mls/hr IV ONETIME PRN PRN Reason: Bleeding Oxytocin/Sodium Chloride (Pitocin In Ns 30 Unit/500 Ml) 30 unit in 500 mls @ 2 mls/hr IV TITRATE [facility]; Protocol Last Titration: 11/27/18 15:37 Dose: 0 mls/hr Lactated Ringer's (Ringers, Lactated) 1,000 mls @ 125 mls/hr IV ASDIRECTED [facility] Last Admin: 11/27/18 21:51 Dose: 125 mls/hr Lactated Ringer's (Ringers, Lactated) 1,000 mls @ 500 mls/hr IV .BOLUS [facility] Last Admin: 11/27/18 11:00 Dose: 500 mls/hr Lactated Ringer's (Ringers, Lactated) 1,000 mls @ 125 mls/hr IV ASDIRECTED [facility] Tranexamic Acid 1,000 mg/ (Sodium Chloride) 110 mls @ 660 mls/hr IV ONETIME PRN PRN Reason: Bleeding Ibuprofen (Motrin) 800 mg PO Q8H PRN PRN Reason: mild pain or fever Methylergonovine Maleate (Methergine) 0.2 mg IM ONETIME PRN PRN Reason: Excessive Vaginal Bleeding Misoprostol (Cytotec) 800 mcg RECTAL ASDIRECTED PRN PRN Reason: Excessive bleeding Naloxone HCl (Narcan) 0.1 mg IVPUSH SEECOMMENT PRN PRN Reason: Respiratory Depression Ondansetron HCl (Zofran) 4 mg IV Q4H PRN PRN Reason: Nausea/Vomiting Last Admin: 11/27/18 16:48 Dose: 4 mg Oxycodone/Acetaminophen (Percocet 325-5 Mg) 1 tab PO Q4H PRN PRN Reason: Pain (moderate 4-6) Oxycodone/Acetaminophen (Percocet 325-5 Mg) 2 tab PO Q4H PRN PRN Reason: Pain (moderate 4-6) Prenat Multivit/Curtain Worker/Iron/Folic Ac ( Plus Iron) 1 each PO DAILY [facility] Simethicone (Simethicone) 160 mg PO QID [facility] Last Admin: 11/27/18 21:08 Dose: 160 mg Sodium Chloride (Saline Flush) 10 ml FLUSH ASDIRECTED PRN PRN Reason: Keep Vein Open Discontinued Medications Carboprost Tromethamine (Hemabate Ds) 250 mcg IM ONETIME ONE Stop: 11/27/18 14:28 Last Admin: 11/27/18 15:31 Dose: Not Given Citric Acid/Sodium Citrate (Bicitra Solution) 30 ml PO ONETIME ONE Stop: 11/27/18 11:16 Last Admin: 11/27/18 11:32 Dose: 30 ml Famotidine (Pepcid) 20 mg IVPUSH ONETIME ONE Stop: 11/27/18 14:42 Last Admin: 11/27/18 15:05 Dose: 20 mg Cefazolin Sodium/Dextrose 2 gm (/ Premix) 50 mls @ 100 mls/hr IV ONETIME ONE Stop: 11/27/18 11:29 Last Admin: 11/27/18 11:45 Dose: 100 mls/hr Oxytocin/Sodium Chloride (Pitocin In Ns 30 Unit/500 Ml) 30 unit in 500 mls @ as directed IV .STK-MED ONE Stop: 11/27/18 15:51 Ketorolac Tromethamine (Toradol) 15 mg IVPUSH Q6H [facility] Stop: 11/28/18 07:01 Last Admin: 11/28/18 06:46 Dose: 15 mg Promethazine HCl (Phenergan) 12.5 mg IM ONETIME ONE Stop: 11/27/18 14:42 Last Admin: 11/27/18 15:05 Dose: 12.5 mg - Interaction Disposition, : to Nursery Feeding: Attempted ; Nursed Fair/Poor Support Person: - Recovery Exam Fundal Tone: Firm Fundal Level: At Umbilicus Fundal Placement: Midline Lochia Amount: Small Lochia Color: Rubra/Red Perineum Description: Intact, Minimal Bruising/Swelling Episiotomy/Laceration: None Bladder Status: Indwelling Catheter in Place Urinary Elimination: Indwelling Catheter - Exam General: Alert, Oriented HEENT: Mucous Membr. Moist/[place] Lungs: Clear to Auscultation, Normal Respiratory Effort Cardiovascular: Regular Rate, Regular Rhythm, No Murmurs GI/Abdominal Exam: Soft, Non-Tender Extremities: Pedal Edema (Trace to lower extremities bilaterally) Skin: Warm, Dry, Intact Wound/Incisions: Dressing Dry and Intact - Problem List & Annotations (1) History of delivery SNOMED Code(s): 110612081 Code(s): Z98.891 - HISTORY OF UTERINE SCAR FROM PREVIOUS SURGERY Status: Acute Current Visit: Yes (2) Anemia affecting in third trimester SNOMED Code(s): 19533823, 24390839 Code(s): O99.013 - ANEMIA COMPLICATING , THIRD TRIMESTER Status: Acute Current Visit: No (3) GBS (group B Streptococcus carrier), +RV culture, currently SNOMED Code(s): 8794807041405, 349869527, 8104600387190 Code(s): O99.820 - STREPTOCOCCUS B CARRIER STATE COMPLICATING Status: Acute Current Visit: No (4) care in third trimester SNOMED Code(s): 274818561, 66176289, 75324485, 787016374, 977668622 Code(s): Z34.93 - ENCNTR FOR SUPRVSN OF NORMAL PREG, UNSP, THIRD TRIMESTER Status: Acute Current Visit: No (5) Status post primary low transverse section SNOMED Code(s): 615869349, 81772892, 423420170, 536210403, 661216228 Code(s): Z98.891 - HISTORY OF UTERINE SCAR FROM PREVIOUS SURGERY Status: Acute Current Visit: No (6) Acute blood loss as cause of postoperative anemia SNOMED Code(s): 59674080774987636 Code(s): D62 - ACUTE POSTHEMORRHAGIC ANEMIA Status: Acute Current Visit: Yes - Problem List Review Problem List Initiated/Reviewed/Updated: Yes - Assessment Assessment:: 32-year-old, now , POD#1 status post repeat section at 39w0d - Plan Plan:: 1. Continue routine postoperative cares 2. 3. Hemoglobin 10.7. Will start oral iron 4. Anticipate discharge 11/30/18 or 12/01/18. Patient would like 48 hour discharge if possible. Lyly France MD
[2018-11-28] MEDS: Simethicone 80 MG Tab.Chew PO SCH ×4 (09:25→20:45)
[2018-11-28] MEDS: Acetaminophen/oxyCODONE 325-5 MG Tab PO PRN ×3 (09:30→20:45)
[2018-11-28] MEDS: Prenatal Multivitamin with Calcium/Folic Acid/Iron Tab PO SCH (09:30)
[2018-11-28] MEDS: Ferrous Sulfate 325 MG Tab PO SCH (09:30)
[2018-11-28] MEDS: Docusate Sodium 100 MG Cap PO PRN ×2 (09:30→20:45)
[2018-11-28] MEDS: Ibuprofen 800 MG Tab PO PRN (15:00)
[2018-11-29] MEDS: Ibuprofen 800 MG Tab PO PRN ×2 (02:06→10:27)
[2018-11-29] MEDS: Acetaminophen/oxyCODONE 325-5 MG Tab PO PRN ×2 (02:07→08:04)
[2018-11-29] MEDS: Docusate Sodium 100 MG Cap PO PRN (08:04)
[2018-11-29] MEDS: Ferrous Sulfate 325 MG Tab PO SCH (08:04)
[2018-11-29] MEDS: Prenatal Multivitamin with Calcium/Folic Acid/Iron Tab PO SCH (08:04)
[2018-11-29] MEDS: Simethicone 80 MG Tab.Chew PO SCH (08:05)
[2018-11-29 08:15] VITALS: BP 117/63
--- NOTE | 2018-11-29 09:32 | PCM.DCSUM1 ---
Discharge Summary - Hospital Course Free Text/Narrative:: 32-year-old POD#2 status post repeat section at 39w0d. Diagnosis: Stroke: No - Discharge Data Discharge Date: 11/29/18 Discharge Disposition: Home, Self-Care 01 Condition: Good - Discharge Diagnosis/Problem(s) (1) History of delivery SNOMED Code(s): 726039951 ICD Code: Z98.891 - HISTORY OF UTERINE SCAR FROM PREVIOUS SURGERY Status: Acute Current Visit: Yes (2) Anemia affecting in third trimester SNOMED Code(s): 04541378, 53320283 ICD Code: O99.013 - ANEMIA COMPLICATING , THIRD TRIMESTER Status: Acute Current Visit: No (3) GBS (group B Streptococcus carrier), +RV culture, currently SNOMED Code(s): 4458984178185, 606721343, 5549094019546 ICD Code: O99.820 - STREPTOCOCCUS B CARRIER STATE COMPLICATING Status: Acute Current Visit: No (4) care in third trimester SNOMED Code(s): 002752252, 97419057, 20063444, 106229417, 130065839 ICD Code: Z34.93 - ENCNTR FOR SUPRVSN OF NORMAL PREG, UNSP, THIRD TRIMESTER Status: Acute Current Visit: No (5) Status post primary low transverse section SNOMED Code(s): 262378206, 67323061, 353545097, 517273752, 801099567 ICD Code: Z98.891 - HISTORY OF UTERINE SCAR FROM PREVIOUS SURGERY Status: Acute Current Visit: No (6) Acute blood loss as cause of postoperative anemia SNOMED Code(s): 19627544931907867 ICD Code: D62 - ACUTE POSTHEMORRHAGIC ANEMIA Status: Acute Current Visit : Yes - Patient Summary/Data Operative Procedure(s) Performed: Repeat section Complications: None Consults: None Labs Pending at D/C: None Recommended Follow-up Testing/Procedures: None Planned Operative Procedure(s) after DC: None Hospital Course: Please see subjective section - Patient Instructions Diet: Regular Diet as Tolerated Activity: As Tolerated, No Lifting Over 20 Pounds, Rest and Relax Today Driving: Do Not Drive (while taking pain medication) Showering/Bathing: May Shower Wound/Incision Care: Keep Operative Site/Wound Site Clean and Dry Notify Provider of: Fever, Increased Pain, Swelling and Redness, Drainage - Discharge Plan *PRESCRIPTION DRUG MONITORING PROGRAM REVIEWED*: Not Applicable *COPY OF PRESCRIPTION DRUG MONITORING REPORT IN PATIENT MASSIEL: Not Applicable Home Medications: Home Meds Fluticasone Propionate 1 spray INH ASDIRECTED 01/25/17 [History] Loratadine [Claritin] 10 mg PO DAILY 01/25/17 [History] PNV95/Ferrous Fumarate/FA [ Vitamins Tablet] 1 tab PO DAILY 01/25/17 [ History] Acetaminophen [Tylenol] 650 mg PO Q6H PRN tablet 11/29/18 [Rx] Docusate Sodium [Colace] 100 mg PO Q12H PRN cap 11/29/18 [Rx] Ferrous Sulfate 325 mg PO WITHBREAKFAST tablet 11/29/18 [Rx] Ibuprofen [Motrin] 800 mg PO Q8H PRN tablet 11/29/18 [Rx] - Discharge Summary/Plan Comment DC Time >30 min.: No Discharge Summary/Plan Comment: Discharge home today. Follow-up in 6-8 weeks for check. Routine instructions provided. Reasons to return to clinic or present to the ED were reviewed. - General Info Date of Service: 11/29/18 Subjective Update: 32-year-old now POD#2 s/p repeat section. Patient is doing well. She is tolerating a general diet. No fever or chills. She has been ambulating without difficulty. No dizziness or lightheadedness. has been going well. Baby is latching well. No concerns per patient or nursing staff. Functional Status: Reports: Pain Controlled, Tolerating Diet, Ambulating, Urinating. Denies: New Symptoms - Review of Systems General: Reports: No Symptoms HEENT: Reports: No Symptoms Pulmonary: Reports: No Symptoms Cardiovascular: Reports: No Symptoms Gastrointestinal: Reports: No Symptoms Genitourinary: Reports: No Symptoms Musculoskeletal: Reports: No Symptoms Skin: Reports: No Symptoms Neurological: Reports: No Symptoms - Patient Data Vitals - Most Recent: Last Vital Signs Temp 36.3 C 11/29/18 08:00 Pulse 110 H 11/29/18 08:00 Resp 16 11/29/18 08:00 BP 117/63 11/29/18 08:00 Pulse Ox 100 11/29/18 08:00 Weight - Most Recent: 93.44 kg Med Orders - Current: Current Medications Acetaminophen (Tylenol) 650 mg PO Q6H PRN PRN Reason: mild pain or fever Diphenhydramine HCl (Benadryl) 25 mg IVPUSH Q6H PRN PRN Reason: Itching or Nausea Last Admin: 11/27/18 16:48 Dose: 25 mg Docusate Sodium (Colace) 100 mg PO Q12H PRN PRN Reason: Constipation Last Admin: 11/29/18 08:04 Dose: 100 mg Ephedrine Sulfate (Ephedrine Sulfate) 5 mg IVPUSH SEECOMMENT PRN PRN Reason: Other Ferrous Sulfate (Ferrous Sulfate) 325 mg PO WITHBREAKFAST DHARMESH Last Admin: 11/29/18 08:04 Dose: 325 mg Tranexamic Acid 1,000 mg/ (Sodium Chloride) 110 mls @ 660 mls/hr IV ONETIME PRN PRN Reason: Bleeding Oxytocin/Sodium Chloride (Pitocin In Ns 30 Unit/500 Ml) 30 unit in 500 mls @ 2 mls/hr IV TITRATE DHARMESH; Protocol Last Titration: 11/27/18 15:37 Dose: 0 mls/hr Lactated Ringer's (Ringers, Lactated) 1,000 mls @ 125 mls/hr IV ASDIRECTED DHARMESH Last Admin: 11/27/18 21:51 Dose: 125 mls/hr Lactated Ringer's (Ringers, Lactated) 1,000 mls @ 500 mls/hr IV .BOLUS [facility] Last Admin: 11/27/18 11:00 Dose: 500 mls/hr Lactated Ringer's (Ringers, Lactated) 1,000 mls @ 125 mls/hr IV ASDIRECTED DHARMESH Tranexamic Acid 1,000 mg/ (Sodium Chloride) 110 mls @ 660 mls/hr IV ONETIME PRN PRN Reason: Bleeding Ibuprofen (Motrin) 800 mg PO Q8H PRN PRN Reason: mild pain or fever Last Admin: 11/29/18 02:06 Dose: 800 mg Methylergonovine Maleate (Methergine) 0.2 mg IM ONETIME PRN PRN Reason: Excessive Vaginal Bleeding Misoprostol (Cytotec) 800 mcg RECTAL ASDIRECTED PRN PRN Reason: Excessive bleeding Naloxone HCl (Narcan) 0.1 mg IVPUSH SEECOMMENT PRN PRN Reason: Respiratory Depression Ondansetron HCl (Zofran) 4 mg IV Q4H PRN PRN Reason: Nausea/Vomiting Last Admin: 11/27/18 16:48 Dose: 4 mg Oxycodone/Acetaminophen (Percocet 325-5 Mg) 1 tab PO Q4H PRN PRN Reason: Pain (moderate 4-6) Last Admin: 11/28/18 15:01 Dose: 1 tab Oxycodone/Acetaminophen (Percocet 325-5 Mg) 2 tab PO Q4H PRN PRN Reason: Pain (moderate 4-6) Last Admin: 11/29/18 08:04 Dose: 2 tab Prenat Multivit/Leighton/Iron/Folic Ac ( Plus Iron) 1 each PO DAILY [facility] Last Admin: 11/29/18 08:04 Dose: 1 each Simethicone (Simethicone) 160 mg PO QID [facility] Last Admin: 11/29/18 08:05 Dose: 160 mg Sodium Chloride (Saline Flush) 10 ml FLUSH ASDIRECTED PRN PRN Reason: Keep Vein Open Discontinued Medications Carboprost Tromethamine (Hemabate Ds) 250 mcg IM ONETIME ONE Stop: 11/27/18 14:28 Last Admin: 11/27/18 15:31 Dose: Not Given Citric Acid/Sodium Citrate (Bicitra Solution) 30 ml PO ONETIME ONE Stop: 11/27/18 11:16 Last Admin: 11/27/18 11:32 Dose: 30 ml Famotidine (Pepcid) 20 mg IVPUSH ONETIME ONE Stop: 11/27/18 14:42 Last Admin: 11/27/18 15:05 Dose: 20 mg Cefazolin Sodium/Dextrose 2 gm (/ Premix) 50 mls @ 100 mls/hr IV ONETIME ONE Stop: 11/27/18 11:29 Last Admin: 11/27/18 11:45 Dose: 100 mls/hr Oxytocin/Sodium Chloride (Pitocin In Ns 30 Unit/500 Ml) 30 unit in 500 mls @ as directed IV .STK-MED ONE Stop: 11/27/18 15:51 Ketorolac Tromethamine (Toradol) 15 mg IVPUSH Q6H [facility] Stop: 11/28/18 07:01 Last Admin: 11/28/18 06:46 Dose: 15 mg Promethazine HCl (Phenergan) 12.5 mg IM ONETIME ONE Stop: 11/27/18 14:42 Last Admin: 11/27/18 15:05 Dose: 12.5 mg - Exam General: Reports: Alert, Oriented Lungs: Reports: Clear to Auscultation, Normal Respiratory Effort Cardiovascular: Reports: Regular Rate, Regular Rhythm, No Murmurs GI/Abdominal Exam: Soft Skin: Reports: Warm, Dry, Intact Wound/Incisions: Reports: Healing Well
[2018-11-29] MEDS ORDERED: Lactated Ringers 1,000 ML IV ONE (10:44)
[2018-11-29] MEDS ORDERED: Ketorolac 30 MG/ML SDV IVPUSH ONE (10:44)
[2018-11-29] MEDS ORDERED: Ondansetron 4 MG/2 ML SDV IV ONE (10:44)
[2018-11-29] MEDS ORDERED: ePHEDrine 50 MG/ML SDV IV ONE (10:44)
[2018-11-29] MEDS ORDERED: Dexamethasone 4 MG/ML SDV IV ONE (10:44)
[2018-11-29] MEDS ORDERED: Morphine PF 1 MG/ML Amp ONE (10:44)
== END 2018-11-29 10:45 | disposition home or self-care (01) | DRG 540 ==
LOC: DL.OBCHECK 10:01 → OBSVTOIN 10:02 → DL.OB 10:02 → INTOOBSV 10:02 → UNDOADMOB 10:02 → EDSTATUS 12:00 → DL.OB 12:24 → OBSVTOIN 12:24
PROVIDERS: ADMIT Family Medicine; ATTEND Family Medicine
PROC: 10D00Z1 Extraction of Products of Conception, Low, Open Approach (ICD-10-PCS; principal; 2018-11-27)
DX: O34.211 Maternal care for low transverse scar from previous cesarean delivery (principal); O99.820 Streptococcus B carrier state complicating pregnancy; Z3A.39 39 weeks gestation of pregnancy; Z37.0 Single live birth; D62 Acute posthemorrhagic anemia; O90.81 Anemia of the puerperium
CPT/HCPCS: 36415; 59025; 85025; 85027; 86850; 86900; 86901; A4217; A9270-GY; J0690; J1100; J1200; J1885; J2274; J2405; J2550; J2590; J3490; J7120